=== PATIENT | male | born 1970 | race Caucasian/White ===

== ENCOUNTER 2023-10-25 14:25 | Inpatient (IN) | payer BC, SELFPAY ==
[2023-10-25] VITALS (7 sets, daily range): BP systolic 116–133; BP diastolic 70–94; BMI 30.7; BMI 30.2
[2023-10-25 10:08] LABS: % Basophils 0.4 % (0-2); % Eosinophils 0.7 % (0-6); % Immature Granulocytes 0.2 % (0-0.5); % Lymphocytes 10.4 % (20.5-51.1); % Monocytes 13.6 % (1.7-9.3); % Neutrophils 74.7 % (42.2-75.2); Absolute Eosinophils 0.1 10^3/uL (0-0.7); Absolute Monocytes 1.3 10^3/uL (0.1-0.6); Hematocrit 41.6 % (39.0-52.0); Mean Corp Hgb Conc. 36.1 g/dL (33.0-37.0); Mean Corpuscular Hgb 32.5 pg (27.0-31.0); Mean Platelet Volume 9.3 fL (7.4-10.4); Nucleated Red Blood Cells % 0 % (-); Platelet Count 214 10^3/uL (130-400); Red Blood Cell Count 4.62 10^6/uL (4.70-6.10); Red Cell Dist. Width 11.9 % (11.5-14.5); White Blood Cell Count 9.3 10^3/uL (4.8-10.8)
[2023-10-25 10:21] LABS: ALT (SGPT) 48 U/L (0-50); AST (SGOT) 30 U/L (17-59); Albumin 4.4 g/dl (3.5-5.0); Alkaline Phosphatase 39 U/L (38-126); Blood Urea Nitrogen 13 mg/dl (9-20); Calcium 9.3 mg/dl (8.4-10.2); Carbon Dioxide 29 mmol/L (22-30); Chloride 98 mmol/L (98-107); Glucose 98 mg/dl (70-99); Lipase 34 U/L (23-300); Potassium 4.4 mmol/L (3.5-5.1); Sodium 134 mmol/L (135-145); Total Bilirubin 1.1 mg/dl (0.2-1.3); Total Protein 7.3 g/dl (6.3-8.2); eGFR > 60.00
--- NOTE | 2023-10-25 10:23 | ED.GENMED ---
History of Present Illness
<TY Franco - Last Filed: 10/26/23 07:32>
General
Chief Complaint: Abdominal Pain
Source: patient
Exam Limitations: none
Time Seen by Provider: 10/25/23 09:40
Nursing documentation reviewed up to this point in time: agreed with
Travel History
Have you had any contact with someone who has COVID-19?: No
Do you have any symptoms of coronavirus? Fever > 100 degrees, chills, cough, shortness of breath, sore throat, loss of taste or smell, muscle aches, or headache?: No
History of Present Illness
History of Present Illness:
Patient is a 53-year-old male with past medical history of diverticulitis with perforation, hypertension and Achilles tendon rupture who presents to the ER for evaluation. He started with left lower quadrant abdominal pain Tuesday night, 2 nights
ago. He reports it felt like his diverticulitis. He had Augmentin at home and started that medication. He has taken a total of 4 doses. He reports pain continues and has worsened. Last night he had chills and sweats.
He is nauseous with this pain but has not vomited. He reports this morning he moved his bowels about 7 times but is having very small amt of small 'rabbit type stool.'
Review of Systems
<TY Franco - Last Filed: 10/26/23 07:32>
Review of Systems
Allergies reviewed?: Yes
All Other Systems: ROS reviewed and negative except as documented in HPI and ROS
Constitutional: Reports chills (+ chills/sweats )
Respiratory: Reports no symptoms
Cardiac: Reports no symptoms
ABD/GI: Reports abdominal pain, nausea and constipated; Denies vomiting, diarrhea or bloody stools
: Reports no symptoms
Musculoskeletal: Reports no symptoms
Skin: Reports no symptoms
Hematologic/Lymphatic: Reports no symptoms
Psychiatric: Reports no symptoms
Phy Exam
<TY Franco - Last Filed: 10/26/23 07:32>
General Physical Exam
General Presentation: no apparent distress
General age: appears stated age
General Skin: warm and dry
General Habitus: normal
General Mental: alert
Gastrointestinal Exam
Gastrointestinal Exam: soft and other (tender lower abdomen )
Neurological Exam
Neurological Exam: alert and oriented x3
Musculoskeletal Exam
Musculoskeletal Exam: full ROM
Skin Exam
Skin Exam: normal color and warm/dry
Psychiatric Exam
Psychiatric Exam: normal mood/affect
Course
<TY Franco - Last Filed: 10/26/23 07:32>
Orders/Labs/Results
Orders:
Orders
10/25/23 09:55
Complete Blood Count/With Diff Urgent
Comprehensive Metabolic Panel Urgent
Lipase Urgent
10/25/23 10:28
Ketorolac [Toradol] 15 mg IV NOW STA
Ondansetron Injectable [Zofran] 4 mg IV NOW STA
10/25/23 10:29
0.9% Sodium Chloride 1000 ml [Nss] 1,000 ml IV BOLUS
10/25/23 10:30
CT Abd/Pel (IV only)-DH only Urgent
Comment:
Reason For Exam: lower abd pain
10/25/23 11:43
Piperacillin/Tazo 3.375 Gram [Zosyn] 3.375 gram in 50 ml IV NOW
10/25/23 11:54
HYDROmorphone [Dilaudid] 0.5 mg IV NOW STA
10/25/23 12:12
Lactic Acid Urgent
Blood Culture Q30M
TIARA Source: Blood/Venous
Specimen Description:
Blood Culture Q30M
TIARA Source: Blood/Venous
Specimen Description:
10/25/23 13:40
HYDROmorphone [Dilaudid] 0.5 mg IV NOW STA
10/25/23 13:48
Admit/Transfer Patient As Directed
Co-Sign Provider:
Level of Care: Inpatient admission
Assign to:: Medical/Surgical
Physician / Group: saul duvall
Diagnosis: diverticulitis
Reason for Hospitalization: diverticulitis
Expected length of stay greater than two midnights?: Yes
ELOS- Estimated Length of Stay in days: 3
I certify the patient meets the requirements for IP care: Yes
EKG [Electrocardiogram (*1)] Stat
Reason for Study: QTc Monitoring
10/25/23 13:49
Code Status As Directed
Resuscitation Status: Full Code
10/25/23 17:12
Acetaminophen [Tylenol] 650 mg PO Q4HPRN PRN
HYDROmorphone [Dilaudid] 0.5 mg IV Q3HPRN PRN
Ondansetron Injectable [Zofran] 4 mg IV Q6HPRN PRN
10/25/23 17:12
ColoRectal Surgery Consult Routine
Consulting Provider: Allen Glez
Was physician already notified: Yes
Activity As Directed
Activity Level: As Tolerated
Pneumatic Compression Sleeves As Directed
Type: Knee high
Vital Signs As Directed
Frequency: Per unit guidelines
DX Deep Vein Thrombosis Video Routine
10/25/23 17:21
HYDROmorphone [Dilaudid] 0.75 mg IV Q4HPRN PRN
10/25/23 18:00
Piperacillin/Tazo 3.375 Gram [Zosyn] 3.375 gram in 50 ml IV Q6H
10/26/23 06:47
Basic Metabolic Panel IN AM
Complete Blood Count/No Diff IN AM
10/26/23 08:00
Olmesartan Medoxomil [Benicar] 40 mg PO DAILY
10/27/23 06:00
Basic Metabolic Panel IN AM
Complete Blood Count/No Diff IN AM
10/28/23 06:00
Basic Metabolic Panel IN AM
Complete Blood Count/No Diff IN AM
10/29/23 06:00
Basic Metabolic Panel IN AM
Complete Blood Count/No Diff IN AM
10/30/23 06:00
Complete Blood Count/No Diff IN AM
Abnormal Lab Results
10/25/23
09:55
RBC 4.62 L 10^6/uL
(4.70-6.10)
MCH 32.5 H pg
(27.0-31.0)
Absolute Neuts (auto) 7.0 H 10^3/uL
(1.4-6.5)
Absolute Lymphs (auto) 1.0 L 10^3/uL
(1.2-3.4)
Absolute Monos (auto) 1.3 H 10^3/uL
(0.1-0.6)
Lymphocytes % 10.4 L %
(20.5-51.1)
Monocytes % 13.6 H %
(1.7-9.3)
Sodium 134 L mmol/L
(135-145)
10/25/23 09:55
10/25/23 09:55
Vital Signs
Initial and Last Documented VS:
Initial Vital Signs
Temp Pulse Resp BP Pulse Ox
99 F 87 16 125/87 98
10/25/23 09:28 10/25/23 09:28 10/25/23 09:28 10/25/23 09:28 10/25/23 09:28
Last Documented Vital Signs
Temp Pulse Resp BP Pulse Ox
98.1 F 69 20 116/70 99
10/25/23 23:47 10/25/23 23:47 10/25/23 23:47 10/25/23 23:47 10/25/23 23:47
Helpdesk Analyst consulted with Physician
Helpdesk Analyst consulted with physician?: Yes
Name of Physician Consulted: Arianna
<Orion Keller DO - Last Filed: 10/25/23 15:21>
Orders/Labs/Results
Orders:
Orders
10/25/23 09:55
Complete Blood Count/With Diff Urgent
Comprehensive Metabolic Panel Urgent
Lipase Urgent
10/25/23 10:28
Ketorolac [Toradol] 15 mg IV NOW STA
Ondansetron Injectable [Zofran] 4 mg IV NOW STA
10/25/23 10:29
0.9% Sodium Chloride 1000 ml [Nss] 1,000 ml IV BOLUS
10/25/23 10:30
CT Abd/Pel (IV only)-DH only Urgent
Comment:
Reason For Exam: lower abd pain
10/25/23 11:43
Piperacillin/Tazo 3.375 Gram [Zosyn] 3.375 gram in 50 ml IV NOW
10/25/23 11:54
HYDROmorphone [Dilaudid] 0.5 mg IV NOW STA
10/25/23 12:12
Lactic Acid Urgent
Blood Culture Q30M
TIARA Source: Blood/Venous
Specimen Description:
Blood Culture Q30M
TIARA Source: Blood/Venous
Specimen Description:
10/25/23 13:40
HYDROmorphone [Dilaudid] 0.5 mg IV NOW STA
10/25/23 13:48
Admit/Transfer Patient As Directed
Co-Sign Provider:
Level of Care: Inpatient admission
Assign to:: Medical/Surgical
Physician / Group: saul duvall
Diagnosis: diverticulitis
Reason for Hospitalization: diverticulitis
Expected length of stay greater than two midnights?: Yes
ELOS- Estimated Length of Stay in days: 3
I certify the patient meets the requirements for IP care: Yes
EKG [Electrocardiogram (*1)] Stat
Reason for Study: QTc Monitoring
10/25/23 13:49
Code Status As Directed
Resuscitation Status: Full Code
10/25/23 17:12
Acetaminophen [Tylenol] 650 mg PO Q4HPRN PRN
HYDROmorphone [Dilaudid] 0.5 mg IV Q3HPRN PRN
Ondansetron Injectable [Zofran] 4 mg IV Q6HPRN PRN
10/25/23 17:12
ColoRectal Surgery Consult Routine
Consulting Provider: Allen Glez
Was physician already notified: Yes
Activity As Directed
Activity Level: As Tolerated
Pneumatic Compression Sleeves As Directed
Type: Knee high
Vital Signs As Directed
Frequency: Per unit guidelines
DX Deep Vein Thrombosis Video Routine
10/25/23 17:21
HYDROmorphone [Dilaudid] 0.75 mg IV Q4HPRN PRN
10/25/23 18:00
Piperacillin/Tazo 3.375 Gram [Zosyn] 3.375 gram in 50 ml IV Q6H
10/26/23 06:47
Basic Metabolic Panel IN AM
Complete Blood Count/No Diff IN AM
10/26/23 08:00
Olmesartan Medoxomil [Benicar] 40 mg PO DAILY
10/27/23 06:00
Basic Metabolic Panel IN AM
Complete Blood Count/No Diff IN AM
10/28/23 06:00
Basic Metabolic Panel IN AM
Complete Blood Count/No Diff IN AM
10/29/23 06:00
Basic Metabolic Panel IN AM
Complete Blood Count/No Diff IN AM
10/30/23 06:00
Complete Blood Count/No Diff IN AM
Abnormal Lab Results
10/25/23
09:55
RBC 4.62 L 10^6/uL
(4.70-6.10)
MCH 32.5 H pg
(27.0-31.0)
Absolute Neuts (auto) 7.0 H 10^3/uL
(1.4-6.5)
Absolute Lymphs (auto) 1.0 L 10^3/uL
(1.2-3.4)
Absolute Monos (auto) 1.3 H 10^3/uL
(0.1-0.6)
Lymphocytes % 10.4 L %
(20.5-51.1)
Monocytes % 13.6 H %
(1.7-9.3)
Sodium 134 L mmol/L
(135-145)
10/25/23 09:55
10/25/23 09:55
Vital Signs
Initial and Last Documented VS:
Initial Vital Signs
Temp Pulse Resp BP Pulse Ox
99 F 87 16 125/87 98
10/25/23 09:28 10/25/23 09:28 10/25/23 09:28 10/25/23 09:28 10/25/23 09:28
Last Documented Vital Signs
Temp Pulse Resp BP Pulse Ox
98.1 F 69 20 116/70 99
10/25/23 23:47 10/25/23 23:47 10/25/23 23:47 10/25/23 23:47 10/25/23 23:47
<TY Franco - Last Filed: 10/26/23 07:32>
MDM/Problems Addressed
Differential Diagnosis Includes:
not limited to: diverticulitis
MDM/Problems Addressed:
53 yr old male w/ hx of diverticulitis w/ perforation presented w/ lower abd pain , chills. Pt w/ lower abd tenderness on exam w/ a nml wbc non toxic appearing however CT does show acute sigmoid divertic w/ small abscess formation measuring up
to 3.0 cm. Patient was given fluids, pain medication. Case reviewed with colorectal surgery on-call Dr. Glez, DANY Perez ordered. Patient was eval by Dr. Glez and admitted to the hospitalist service. Patient stable with a normal lactic acid.
Chronic conditions affecting care:
History of diverticulitis with perforation
<TY Franco - Last Filed: 10/26/23 07:32>
*Radiology
Radiology exam reviewed: radiology read reviewed
*Pulse Oximetry
Patient hypoxic: no
*Critical Care Note
Total Time (30-74mins, 75-104mins- exclusive of procedures): Not Applicable
ED Attending Note
<TY Franco - Last Filed: 10/26/23 07:32>
-
Portions of this chart may have been created with voice recognition software.� Occasional wrong word or��sound alike� substitutions may have occurred due to the inherent limitations of voice recognition software.
<Orion Keller DO - Last Filed: 10/25/23 15:21>
ED Attending Note
Patient seen and examined by attending physician: Yes
I performed the substantive portion of visit, reviewed & personally made and approve the management plan that is documented in note by myself or KIKI.: Yes
ED Attending Note:
Patient is a 53-year-old male with a history of diverticulitis with perforation approximately 9 months ago and a repeat of diverticulitis approximately 6 months ago. Patient started with pain 3 days ago and was started himself on Augmentin.
Patient has not required surgery. Patient was having chills, sweats and rigors for the last 2 days. Patient denies any nausea, vomiting, hematochezia. Patient denies any symptoms or back pain. On physical exam patient's in mild to moderate
distress. Heart is regular lungs are clear. Patient's mucous membranes are moist. Patient is exquisitely point tender in the left lower quadrant with guarding and rebound. Extremities without edema, cyanosis or tenderness. CT shows
diverticulitis with abscess. CBC does not show an elevated white count. Patient will be admitted and seen by colorectal. Patient may require surgery.
Discharge Plan
Departure
Patient Disposition: Admit
Date of Disposition: 10/25/23
Time of Disposition: 13:25
Admit to: Med/Surg
Admit to doctor: hospitalist
Presentation/result/management discussed w/ accepting MD/DO: Hospitalist
Patient with high blood pressure during this ER visit?: Yes
Condition: Fair
Covid-19: Not Applicable
Discharge Problem:
diverticulitis with abscess
Interventions
Interventions:
*Risk Screen - Suicide Last Done: 10/25/23 09:28
*General Assessment Last Done: 10/25/23 09:28
*Neglect/Abuse Screening Last Done: 10/25/23 09:28
ED- Fall Risk Assessment Last Done: 10/25/23 17:23
*ED COVID-19 Vaccine History Last Done: 10/25/23 17:23
*Nursing Disposition Last Done: 10/25/23 17:23
YX-Trfrse-Avycdrahkl Assessment Last Done: 10/25/23 09:55
Discharge Date and Time
Discharge Date/Time: 10/25/23 17:24
[2023-10-25] MEDS: TORADOL 15 MG IV (10:39)
[2023-10-25] MEDS: NSS 1000 IV (10:39)
[2023-10-25] MEDS: ZOFRAN 4 MG IV (10:40)
[2023-10-25] MEDS: DILAUDID 0.5 MG IV ×3 (12:13→21:15)
[2023-10-25] MEDS: ZOSYN 50 IV ×3 (12:14→23:33)
[2023-10-25 13:01] LABS: Lactic Acid 0.7 mmol/L (0.7-2.0)
--- NOTE | 2023-10-25 13:28 | HPS.HSE ---
Addendum entered and electronically signed by Gabriella Dykes MD 10/25/23 15:29:
I saw and examined the patient.
The PRODUCT STEWARD's note was reviewed and I agree with the note.
Comment:
Mr. Allen Fowler is a 53 yo man with hx diveritculitis x 2 over past 10 months, HTN presents to the ER with abdominal pain x 4 days increasing in intensity. He took Augmentin prescribed to him as outpatient without effect. Triage vitals
stable. Labs without leukocytosis. CT A/P with finding of acute sigmoid diverticulitis with associated small abscess formation.
On exam patient is conversant, in no distress (s/p dilaudid x 2). + TTP lower abdomen, no rebound or gaurding. No swelling LE.
CT A/P
IMPRESSION:
1. � Acute sigmoid diverticulitis with associated small abscess formation. Abscess measuring up to 3.0 cm in diameter. As above, this is in a position which is likely not amenable to percutaneous drainage.
2. � Hepatomegaly and hepatic fatty infiltration.
3. � Unchanged low-attenuation 1.3 cm nodule superior prostate gland, indeterminate etiology.
-patient is admitted to medicine with CRS consulting.
-CLD
-IVF
-pain control
-IV Zosyn
Original Note:
Family Physician
-
Family Physician: Orlin Mondragon
Chief Complaint
-
abdominal pain assoicated with n
History of Present Illness
�53-year-old male with past medical history of diverticulitis with perforation, hypertension and Achilles tendon rupture who presents to us with mid abdomen pain since Tuesday night. stated constant nausea but no vomit. had small pellets of BM
around with diarrhea 7 times today. stated chills, not sure about the fever. stated poor appetite. he started taking Augmentin yesterday. took total of 4 doses with no relief in his symptoms. denied CHRISTIANSON, dizzy or syncopal episode. denied chest pain,
sob. denied dysuria or hematuria.
CT with Acute sigmoid diverticulitis with associated small abscess formation. Abscess measuring up to 3.0 cm in diameter. As above, this is in a position which is likely not amenable to percutaneous drainage.
patient received Zosyn, Dilaudid in ER. admitting for further management.
Medical History
Past Medical History
Past Medical History: Reports Other
Additional Past Medical History:
diverticulitis
HTN
achillies tendon
Past Surgical History: Reports Other
Additional Past Surgical History:
b/l hip surgery
shoulder, neck surgery
wrist surgery
appendectomy
tonsillectomy
vasectomy
Social History
Tobacco: Former Smoker
Alcohol: Daily (2 glass of wine)
Drug: None
Personal:
Living: With Family
Employment: Employed
Family History
Family History: Not pertinent
Allergies / Home Medications
Allergies reflects when Allergies were last updated in [employer].
Home Medications with original date entered in [employer]
Allergy/Medication List:
Allergies
Allergy/AdvReac Type Severity Reaction Status Date / Time
clarithromycin [From Biaxin] Allergy Rash Verified 10/25/23 09:28
Sulfa (Sulfonamide Allergy Rash Verified 10/25/23 09:28
Antibiotics)
Home Medications
amoxicillin 875 mg-potassium clavulanate 125 mg tablet 1 tab PO Q8HPRN PRN diverticulitis flares 10/25/23
cholecalciferol (vitamin D3) 125 mcg (5,000 unit) tablet 125 mcg PO DAILY PRN supplement 10/25/23
clindamycin 1.2 % (1 % base)-benzoyl peroxide 5 % topical gel 1 applic topical DAILYPRN PRN apply to face for acne flares 10/25/23
metronidazole 0.75 % topical cream 1 applic topical HSPRN PRN apply to face for acne flares 10/25/23
olmesartan 40 mg tablet 40 mg PO DAILY 10/25/23
sucralfate 1 gram tablet 1 g PO QIDPRN PRN stomach discomfort 10/25/23
therapeutic multivitamin 1 tab PO DAILY PRN supplement 10/25/23
vitamin E 1 tab PO DAILYPRN PRN supplement 10/25/23
Review of Systems
-
Constitutional: Reports No Symptoms
EENT: Reports No Symptoms
Respiratory: Reports No Symptoms
Cardiac: Reports No Symptoms
Abdomen/GI: Reports Abdominal Pain and Nausea
: Reports No Symptoms
Musculoskeletal: Reports No Symptoms
Skin: Reports No Symptoms
Neurological: Reports No Symptoms
Endocrine: Reports No Symptoms
Hematologic/Lymphatic: Reports No Symptoms
Psych: Reports No Symptoms
Physical Exam
Vital Signs
Vital Signs
Temp Pulse Resp BP Pulse Ox
98.4 F 79 16 133/94 91
10/25/23 12:42 10/25/23 12:25 10/25/23 12:25 10/25/23 12:25 10/25/23 12:30
Physical Exam
General: Well Developed, Well Nourished and No Apparent Distress
HEENT: NormoCephalic, Moist mucous membranes and Atraumatic
Respiratory: Clear
Cardiac: S1/S2 and Regular Rhythm; No Murmur or Rub
GI: Soft, Non Tender, Non Distended and Normal Bowel Sounds; No Organomegaly
Rectal: Deferred by Provider
Musculoskeletal: No Clubbing, No Cyanosis and No Edema
Skin: No Rash
Neuro: AO x 3 and Nonfocal/grossly intact
Psych: Calm
Laboratory Results
-
10/25/23 09:55
10/25/23 09:55
Laboratory Results
Lactic Acid 0.7 mmol/L (0.7-2.0) 10/25/23 12:12
Total Bilirubin 1.1 mg/dl (0.2-1.3) 10/25/23 09:55
AST 30 U/L (17-59) 10/25/23 09:55
ALT 48 U/L (0-50) 10/25/23 09:55
Alkaline Phosphatase 39 U/L (38-126) 10/25/23 09:55
Lipase 34 U/L (23-300) 10/25/23 09:55
Data Reviewed
-
CT Scan: Report Reviewed by me
Lab Data: Labs Reviewed by me
Impression/Plan
-
# Diverticulitis with 3 centimeter abscess
-Not amendable for percutaneous drainage
-Colorectal consulted
-IV Zosyn continued
-Afebrile, normal WBC
-CT abdomen pelvis with impression of Acute sigmoid diverticulitis with associated small abscess formation. Abscess measuring up to 3.0 cm in diameter. As above, this is in a position which is likely not amenable to percutaneous drainage.
2. � Hepatomegaly and hepatic fatty infiltration.
3. � Unchanged low-attenuation 1.3 cm nodule superior prostate gland, indeterminate etiology.
-Blood culture sent from ER
-Tylenol as needed for fever
-Dilaudid prn for pain
-zofran prn for n/v
-NPO with sips of clears
-Toradol for moderate pain
#essential htn
-BP stable in ER
-olmesartan continued
#DVT prophylaxis
-scd
#CODE status
-full code
--- NOTE | 2023-10-25 13:58 | CON.CRS ---
Consultation
-
Performing Provider: Allen Glez MD
Reason for Consultation: Diverticulitis
Medical History
-
History of Present Illness:
Patient is a 53-year-old male with a PMH of HTN, HLD, acne and diverticulitis (first episode in January 2023, occurred in [place], was told there was a perforation and was treated nonoperatively in the hospital for 7 days; second episode occurred
April 2023, CT in [place] ED showing uncomplicated diverticulitis) who presents with 2 days of worsening abdominal pain. He recognized that this felt like another episode of diverticulitis and started taking an old prescription of Augmentin.
He has taken 2 days of the Augmentin, but the abdominal pain continued to get worse. Denies any new onset fever or N/V. His last colonoscopy was 6 months ago and reports that it is normal, recommended to repeat in 10 years. This was done in
[facility].
In the ED, a CT scan was done showing a recurrent episode of diverticulitis associated with 3 cm abscess. His WBC was 9.3.
Past Medical History
Past Medical History: Other (As above)
Past Surgical History: Other (Bilateral hip surgery, Achilles rupture, shoulder surgery, neck surgery, wrist surgery, back surgery, appendectomy 40 years ago, tonsils, vasectomy)
Social History
Employment: Employed
Family History
Family History: Reviewed & Noncontributory
Allergies / Home Medications
Allergy/AdvReac Type Severity Reaction Status Date / Time
clarithromycin [From Biaxin] Allergy Rash Verified 10/25/23 09:28
Sulfa (Sulfonamide Allergy Rash Verified 10/25/23 09:28
Antibiotics)
Medication Instructions Recorded Confirmed Type
amoxicillin 875 mg-potassium 1 tab PO Q8HPRN PRN diverticulitis 10/25/23 10/25/23 History
clavulanate 125 mg tablet flares
cholecalciferol (vitamin D3) 125 125 mcg PO DAILY PRN supplement 10/25/23 10/25/23 History
mcg (5,000 unit) tablet
clindamycin 1.2 % (1 % 1 applic topical DAILYPRN PRN 10/25/23 10/25/23 History
base)-benzoyl peroxide 5 % topical apply to face for acne flares
gel
metronidazole 0.75 % topical cream 1 applic topical HSPRN PRN apply 10/25/23 10/25/23 History
to face for acne flares
olmesartan 40 mg tablet 40 mg PO DAILY 10/25/23 10/25/23 History
sucralfate 1 gram tablet 1 g PO QIDPRN PRN stomach 10/25/23 10/25/23 History
discomfort
therapeutic multivitamin 1 tab PO DAILY PRN supplement 10/25/23 10/25/23 History
vitamin E 1 tab PO DAILYPRN PRN supplement 10/25/23 10/25/23 History
Review of Systems
-
All other systems: Negative unless noted
A 10 point review of systems was completed, and was negative except as per HPI.
Physical Exam
Vital Signs
Temp 98.4 F 10/25/23 12:42
Pulse 79 10/25/23 12:25
Resp Rate 16 10/25/23 12:25
Blood pressure 133/94 10/25/23 12:25
SaO2 91 10/25/23 12:30
10/24/23 10/25/23 10/26/23
06:59 06:59 06:59
Actual Weight 97.1 kg
Body Mass Index (BMI) 30.7
Lab Results / Allergies
10/25/23 09:55
10/25/23 09:55
WBC 9.3 10^3/uL (4.8-10.8) 10/25/23 09:55
Hgb 15.0 g/dL (13.0-18.0) 10/25/23 09:55
Hct 41.6 % (39.0-52.0) 10/25/23 09:55
Plt Count 214 10^3/uL (130-400) 10/25/23 09:55
Abs Immat Gran (auto) 0.0 10^3/uL (0-0.05) 10/25/23 09:55
Neutrophils % 74.7 % (42.2-75.2) 10/25/23 09:55
Allergy/AdvReac Type Severity Reaction Status Date / Time
clarithromycin [From Biaxin] Allergy Rash Verified 10/25/23 09:28
Sulfa (Sulfonamide Allergy Rash Verified 10/25/23 09:28
Antibiotics)
Physical Exam
General: No Apparent Distress and Comfortable
HEENT: Normocephalic and Atraumatic
Respiratory: Non Labored Respirations
GI: Soft, Non Distended and Tender (Mildly tender in the suprapubic to LLQ, no rebound or guarding)
Skin: Warm and Dry
Neuro: AO x 3
Data Reviewed
-
CT Scan: Image Personally Visualized and interpreted, Discussed with Patient and Discussed with Family
Labs: Labs Reviewed by me, Discussed with Patient and Discussed with Family
Assessment / Plan
-
53-year-old male with a PMH of HTN, HLD, acne and diverticulitis (first episode in January 2023, occurred in [place], was told there was a perforation and was treated nonoperatively in the hospital for 7 days; second episode occurred April 2023, CT
in [place] ED showing uncomplicated diverticulitis) who presents with 2 days of worsening abdominal pain, CT showing diverticulitis with 3.2cm abscess, not accessible by IR. His last colonoscopy was 6 months ago and reports that it is normal,
recommended to repeat in 10 years. This was done in [facility].
-No acute surgical intervention currently indicated
� Okay for clears from CRS standpoint
� Attempt nonoperative management with IV antibiotics, agree with IV Zosyn
� Pain control, recommend Toradol and Tylenol as needed
� OOB/IS
� Explained the pathophysiology of complicated versus uncomplicated diverticulitis and explained the treatment options to the patient, both nonoperative and operative; risks of urgent surgery include, but are not limited to, increased risk for open
surgery and ostomy creation; currently no contraindications to nonoperative management; explained risks with nonoperative management including, but not limited to, failure requiring surgery; plan would be to continue nonoperative management and
follow-up as an outpatient to discuss the risks and benefits of elective colectomy; patient understood well and all questions answered
[2023-10-25] MEDS: DILAUDID 1 MG IV (15:36)
[2023-10-25] MEDS: LR 1000 IV (17:48)
[2023-10-25] MEDS: DILAUDID 0.75 MG IV ×2 (18:08→23:57)
[2023-10-25] MEDS: TYLENOL 650 MG PO (19:51)
[2023-10-26] MEDS: TYLENOL 650 MG PO (02:39)
[2023-10-26] MEDS: DILAUDID 0.75 MG IV ×6 (04:04→21:51)
[2023-10-26] MEDS: LR 1000 IV (04:27)
--- NOTE | 2023-10-26 04:29 | DOWNTIME ---
There was a [employer] Client Buckle Inspector Downtime on 10/26/2023 from 0111 to 10/26/2023 at 0405. Downtime documentation of patient's care, including medication administrations, has been reconciled in the electronic record per guidelines. Refer to the
patient's paper chart under the miscellaneous tab to see printed paper medication records and downtime forms.
[2023-10-26] MEDS: ZOSYN 50 IV ×4 (05:59→23:01)
[2023-10-26 06:59] LABS: Hematocrit 35.8 % (39.0-52.0); Hemoglobin 12.9 g/dL (13.0-18.0); Mean Corpuscular Hgb 32.7 pg (27.0-31.0); Mean Corpuscular Volume 90.6 fL (80.0-94.0); Mean Platelet Volume 9.1 fL (7.4-10.4); Platelet Count 183 10^3/uL (130-400); Red Blood Cell Count 3.95 10^6/uL (4.70-6.10); Red Cell Dist. Width 11.9 % (11.5-14.5); White Blood Cell Count 6.9 10^3/uL (4.8-10.8)
[2023-10-26 07:24] LABS: Blood Urea Nitrogen 12 mg/dl (9-20); Calcium 8.6 mg/dl (8.4-10.2); Carbon Dioxide 31 mmol/L (22-30); Chloride 95 mmol/L (98-107); Estimated Creatinine Clearance 99 ml/min; Glucose 89 mg/dl (70-99); Potassium 4.3 mmol/L (3.5-5.1); Sodium 132 mmol/L (135-145); eGFR > 60.00
[2023-10-26 07:30] VITALS: BP 128/70
[2023-10-26] MEDS: FLUSH (NSS) 2 FLUSH IV (08:36)
[2023-10-26] MEDS: ZOFRAN 4 MG IV ×2 (08:36→21:57)
[2023-10-26] MEDS: BENICAR 40 MG PO (08:37)
--- NOTE | 2023-10-26 10:09 | W.PN.CRS1 ---
Today's Communication / Plan
-
N.p.o.
Simethicone
Assessment/Plan
-
Assessment: 53-year-old male with a second attack of diverticulitis with a associated 3.2 cm abscess not accessible by IR
Plan:
1. Continue to monitor vital signs. Normal. WBC is normal.
2. Remain n.p.o. given the amount of abdominal pain overnight.
3. Continue IV antibiotics.
4. Pain control: Dilaudid IV as needed.
5. Will add simethicone given gas pains.
6. No need for surgery at this time. If he were to worsen he will require a colectomy with colostomy creation.
Subjective Data
Subjective Data
Date of Service: October 26, 2023
Patient states he has bad gas pains. He has shivers and sweats overnight. He had some difficulty swallowing as well which is now resolved. He states his pain medication did not really work. He describes the pain in his abdomen like spasms that
are cycling. He has flatus and bowel movements.
Objective Data
-
Vital Signs
Temp Pulse Resp BP Pulse Ox
98.9 F 72 16 128/70 95
10/26/23 07:30 10/26/23 07:30 10/26/23 07:30 10/26/23 07:30 10/26/23 07:30
Intake & Output
10/25/23 10/26/23 10/27/23
06:59 06:59 06:59
Intake Total 2800 / 2800
Balance 2800 / 2800
Intake:
Oral fluids 1500 / 1500
IV fluids (Total) 1200 / 1200
IV piggybacks 100 / 100
Other:
Number of approximated MODERATE 2
amounts of urine
Lab Results
10/26/23 06:47
10/26/23 06:47
Physical Exam
-
General: No Acute Distress and AOx3
Abdomen: Soft, Non Distended and Tender (Suprapubic, minimally improved)
Skin: Warm and Dry
[2023-10-26] MEDS: MYLICON 80 MG PO ×3 (10:43→22:55)
--- NOTE | 2023-10-26 11:07 | W.PN.HOSP.TC ---
Today's Communication/Plan
-
see plan
Assessment / Plan
Assessment / Plan
Mr. Allen Fowler is a 53 yo man with hx diveritculitis x 2 over past 10 months, HTN presents to the ER with abdominal pain x 4 days increasing in intensity.� He took Augmentin prescribed to him as outpatient without effect.� Triage vitals
stable.� Labs without leukocytosis.� CT A/P with finding of acute sigmoid diverticulitis with associated small abscess formation.
CT A/P
IMPRESSION:
1. � Acute sigmoid diverticulitis with associated small abscess formation. Abscess measuring up to 3.0 cm in diameter. As above, this is in a position which is likely not amenable to percutaneous drainage.
2. � Hepatomegaly and hepatic fatty infiltration.
3. � Unchanged low-attenuation 1.3 cm nodule superior prostate gland, indeterminate etiology.�
Acute Sigmoid Diverticulitis with associated abscess formation 3.0 cm
-patient is admitted to medicine with CRS consulting.
-NPO
-IV Zosyn
-pain control
-appreciate CRS
-simethicone started as patient reports gas pain
Essential Hypertension
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
DVT PPx Lovenox subQ
FULL CODE
Anticipated Discharge: > 48 hours
Subjective/Interval History
-
Date of Service: October 26, 2023
continuing to have pain, states worse with clears
Objective Data
-
Labs:
Laboratory Results
10/26/23
06:47
WBC 6.9
Hgb 12.9 L
Hct 35.8 L
Plt Count 183
Sodium 132 L
Potassium 4.3
Chloride 95 L
Carbon Dioxide 31 H
BUN 12
Creatinine 1.0
Glucose 89
Calcium 8.6
Vital Signs:
Vital Signs
Temp Pulse Resp BP Pulse Ox
98.9 F 72 16 128/70 95
10/26/23 07:30 10/26/23 07:30 10/26/23 07:30 10/26/23 07:30 10/26/23 07:30
I&O
10/25/23 10/26/23 10/27/23
06:59 06:59 06:59
Intake Total 2800 / 2800
Balance 2800 / 2800
Review of Systems
-
History Source: Patient
All other systems: Reviewed and negative
Physical Exam
-
General: No Apparent Distress
HEENT: PERRLA
Respiratory: Clear to Auscultation; Negative Wheezes
Cardiac: Regular Rhythm and S1/S2
GI: Other (distended, tenderness lower quadrants, no rebound or guarding )
Musculoskeletal: No Edema
Skin: Warm and Dry; Negative Rash
Neuro: AO x 3
Psych: Calm
Data Reviewed
-
Diagnostic Radiology: Report Reviewed by me
Labs: Labs Reviewed by me
[2023-10-26] MEDS: D5LR 1000 IV ×2 (11:10→22:54)
--- NOTE | 2023-10-26 14:41 | PN.CDI ---
CDI
- -
CDI:
Physician Documentation Request
Admit Date: 10/25/23 14:25
Dear Doctor Donis,
Clinical Indicators:
Patient admitted with diverticulitis with abscess.
IVF NSS bolus + LR @ 100ml/hr
Sodium levels:
10/25/23 10/26/23
09:55 06:47
Sodium 134 L 132 L
Based on the above, could you clarify in the progress notes, the appropriate diagnosis, if significant, that supports the above abnormalities and additional evaluation, monitoring and/or treatment rendered:
Hyponatremia
Abnormal lab value, clinically insignificant
Other
Use of terms such as suspected, likely, concern for, or probable (associated with a specific diagnosis that is being evaluated, monitored, or treated as if it exists) are acceptable and can be coded in the inpatient setting, when documented at the
time of discharge.
Thank you,
ALIVIA Burns RN
CDI Specialist
available via tiger text
Please use your independent medical judgment in providing your response.
--- NOTE | 2023-10-26 15:23 | CM ---
Patient seen bedside with , initial assessment completed. Patient reports he lives with his in a multiple story home, denies DME, VN, or SNF. Patient reports he has been in outpatient PT with [facility] in [place] as of 2022. Patient confirms
[facility], pharmacy confirmed [facility]. CM will continue to continue for discharge planning needs.
Plan; home with , watch for further medical evaluation.
[2023-10-26 15:45] VITALS: BP 140/86
[2023-10-26] MEDS: LOVENOX 40 MG SC (18:01)
[2023-10-26 23:51] VITALS: BP 123/69
[2023-10-27] MEDS: DILAUDID 0.75 MG IV ×6 (00:56→21:30)
[2023-10-27] MEDS: ZOSYN 50 IV ×3 (05:37→18:14)
[2023-10-27] MEDS: MYLICON 80 MG PO ×4 (05:44→23:46)
[2023-10-27 08:06] VITALS: BP 146/84
[2023-10-27] MEDS: BENICAR 40 MG PO (08:07)
[2023-10-27 08:21] LABS: Hematocrit 36.8 % (39.0-52.0); Hemoglobin 13.1 g/dL (13.0-18.0); Mean Corp Hgb Conc. 35.6 g/dL (33.0-37.0); Mean Corpuscular Hgb 32.1 pg (27.0-31.0); Mean Corpuscular Volume 90.2 fL (80.0-94.0); Mean Platelet Volume 9.7 fL (7.4-10.4); Platelet Count 219 10^3/uL (130-400); Red Blood Cell Count 4.08 10^6/uL (4.70-6.10); Red Cell Dist. Width 11.6 % (11.5-14.5); White Blood Cell Count 7.3 10^3/uL (4.8-10.8)
[2023-10-27 08:48] LABS: Blood Urea Nitrogen 8 mg/dl (9-20); Calcium 8.7 mg/dl (8.4-10.2); Carbon Dioxide 31 mmol/L (22-30); Chloride 98 mmol/L (98-107); Estimated Creatinine Clearance 90 ml/min; Glucose 84 mg/dl (70-99); Potassium 3.9 mmol/L (3.5-5.1); Sodium 134 mmol/L (135-145); eGFR > 60.00
--- NOTE | 2023-10-27 08:55 | W.PN.CRS1 ---
Addendum entered and electronically signed by Orion Costello MD 10/27/23 15:58:
Of note, patient updated via phone as to today CT results. He is aware that IR will attempt to place a drain tomorrow.
Addendum entered and electronically signed by Orion Costello MD 10/27/23 15:36:
I saw and examined the patient.
The PA's note was reviewed and I agree with the note.
Comment:
Seen in a.m. with PA.
Continued to complain of abdominal cramping and discomfort. Had some flatus but no BMs in a few days. Asked for laxatives.
Vitals and blood work reasonable.
Abdomen with mild left lower quadrant discomfort.
Remain n.p.o. for now.
CT scan ordered. I did review it later in the day. It shows increasing size of the abdominal abscess. I communicated with Dr. Luna of interventional radiology about consideration for IR drain placement. He relayed that he would be willing to
try it probably tomorrow morning, however it may be technically challenging. Order placed for IR drain placement.
Continue antibiotics.
Original Note:
Today's Communication / Plan
-
CT A/P
Assessment/Plan
-
Assessment: 53-year-old male with a second attack of diverticulitis with a associated 3.2 cm abscess not accessible by IR
Plan:
1.� Given increasing abdominal pain, CT A/P ordered.
2.� Remain n.p.o. until CT has resulted.
3.� Continue IV antibiotics.
4.� Pain control: Dilaudid IV as needed.
5.� On simethicone given gas pains.
6.� Plan to follow once CT is performed.
Subjective Data
Subjective Data
Date of Service: October 27, 2023
Patient states he had a very bad night. He had the worst abdominal pain since admission. He describes his pain as gas like/pressure pain, occasional stabbing, and some churning with some periods of relief. He has flatus but no bowel movement since
Tuesday. He has nausea but no vomiting.
Objective Data
-
Vital Signs
Temp Pulse Resp BP Pulse Ox
99.0 F 71 20 146/84 95
10/27/23 08:06 10/27/23 08:06 10/27/23 08:06 10/27/23 08:06 10/27/23 08:06
Intake & Output
10/26/23 10/27/23 10/28/23
06:59 06:59 06:59
Intake Total 2800 / 2800 1320 / 1320
Balance 2800 / 2800 1320 / 1320
Intake:
Oral fluids 1500 / 1500 120 / 120
IV fluids (Total) 1200 / 1200 1100 / 1100
IV piggybacks 100 / 100 100 / 100
Other:
Number of approximated MODERATE 2 2
amounts of urine
Lab Results
10/27/23 07:22
10/27/23 07:22
Physical Exam
-
General: No Acute Distress and AOx3
Abdomen: Soft, Non Distended and Tender (LLQ - mild)
Skin: Warm and Dry
[2023-10-27] MEDS: OMNIPAQUE 50 ML PO (09:17)
--- NOTE | 2023-10-27 10:34 | W.PN.HOSP.TC ---
Today's Communication/Plan
-
F/U repeat CT with IV and oral contrast
Assessment / Plan
Assessment / Plan
Mr. Allen Fowler is a 53 yo man with hx diveritculitis x 2 over past 10 months, HTN presents to the ER with abdominal pain x 4 days increasing in intensity.� He took Augmentin prescribed to him as outpatient without effect.� Triage vitals
stable.� Labs without leukocytosis.� CT A/P with finding of acute sigmoid diverticulitis with associated small abscess formation.
CT A/P
IMPRESSION:
1. � Acute sigmoid diverticulitis with associated small abscess formation. Abscess measuring up to 3.0 cm in diameter. As above, this is in a position which is likely not amenable to percutaneous drainage.
2. � Hepatomegaly and hepatic fatty infiltration.
3. � Unchanged low-attenuation 1.3 cm nodule superior prostate gland, indeterminate etiology.�
Acute Sigmoid Diverticulitis with associated abscess formation 3.0 cm
-patient is admitted to medicine with CRS consulting.
-NPO
-IV Zosyn
-pain control
-appreciate CRS
-10/27 - increased pain --> repeat CT ordered
Essential Hypertension
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
DVT PPx Lovenox subQ
FULL CODE
Anticipated Discharge: > 48 hours
Subjective/Interval History
-
Date of Service: October 27, 2023
increasing pain overnight
repeat CT ordered
Objective Data
-
Labs:
Laboratory Results
10/27/23
07:22
WBC 7.3
Hgb 13.1
Hct 36.8 L
Plt Count 219
Sodium 134 L
Potassium 3.9
Chloride 98
Carbon Dioxide 31 H
BUN 8 L
Creatinine 1.1
Glucose 84
Calcium 8.7
Vital Signs:
Vital Signs
Temp Pulse Resp BP Pulse Ox
99.0 F 71 20 146/84 95
10/27/23 08:06 10/27/23 08:06 10/27/23 08:06 10/27/23 08:06 10/27/23 08:06
I&O
10/26/23 10/27/23 10/28/23
06:59 06:59 06:59
Intake Total 2800 / 2800 1320 / 1320
Balance 2800 / 2800 1320 / 1320
Review of Systems
-
History Source: Patient
All other systems: Reviewed and negative
Physical Exam
-
General: No Apparent Distress
HEENT: PERRLA
Respiratory: Clear to Auscultation; Negative Wheezes
Cardiac: Regular Rhythm and S1/S2
GI: Other (distended, tenderness lower quadrants, no rebound or guarding )
Musculoskeletal: No Edema
Skin: Warm and Dry; Negative Rash
Neuro: AO x 3
Psych: Calm
Data Reviewed
-
Diagnostic Radiology: Report Reviewed by me
Labs: Labs Reviewed by me
[2023-10-27] MEDS: D5LR 1000 IV ×2 (13:26→23:55)
[2023-10-27] MEDS: ZOFRAN 4 MG IV (13:40)
--- NOTE | 2023-10-27 14:26 | PTCARENOTE ---
Patient with complaints of constipation. Patient states that his last BM was on Tuesday. Patient went for a CT of abdomen today and awaiting results. He is being medicated for pain as well as gas. Patient has hyperactive bowel sounds.
--- NOTE | 2023-10-27 15:14 | CM ---
Patient seen bedside with , reports waiting on test results. CM will continue to follow for discharge planning needs.
Plan; home with , no needs anticipated, watch for possible VN needs.
[2023-10-27 15:28] VITALS: BP 137/83
[2023-10-27] MEDS: TYLENOL 650 MG PO (16:55)
[2023-10-27] MEDS: D5LR IV (18:12)
[2023-10-27] MEDS: LOVENOX 40 MG SC (18:14)
[2023-10-27] MEDS: DILAUDID 0.5 MG IV (18:32)
--- NOTE | 2023-10-27 19:51 | PTCARENOTE ---
Patient receiving dilaudid 0.75 mg every 3 hours with some pain relief. Patient states that dose of pain medication given at 5pm was not effective and rating pain a 9/[address] Dykes notified and ordered a one time additional dose
of 0.5 mg of dilaudid. Zosyn also increased to 4.5 mg peter 6 hours from 3.375.
[2023-10-27] MEDS: ZOSYN 100 IV (23:46)
[2023-10-28] VITALS (9 sets, daily range): BP systolic 66–164; BP diastolic 76–96; BMI 30.2
[2023-10-28] MEDS: DILAUDID 0.75 MG IV ×3 (00:34→08:00)
[2023-10-28] MEDS: ZOSYN 100 IV ×4 (05:55→23:24)
[2023-10-28] MEDS: BENICAR 40 MG PO (08:13)
[2023-10-28 08:17] LABS: Hematocrit 38.6 % (39.0-52.0); Hemoglobin 14.1 g/dL (13.0-18.0); Mean Corp Hgb Conc. 36.5 g/dL (33.0-37.0); Mean Corpuscular Hgb 32.3 pg (27.0-31.0); Mean Corpuscular Volume 88.3 fL (80.0-94.0); Mean Platelet Volume 9.7 fL (7.4-10.4); Platelet Count 247 10^3/uL (130-400); Red Blood Cell Count 4.37 10^6/uL (4.70-6.10); Red Cell Dist. Width 11.6 % (11.5-14.5); White Blood Cell Count 7.4 10^3/uL (4.8-10.8)
[2023-10-28] MEDS: TYLENOL 650 MG PO (08:17)
[2023-10-28 08:25] LABS: INR 1.22; PT 15.2 Sec (11.4-14.6)
[2023-10-28 09:07] LABS: Blood Urea Nitrogen 6 mg/dl (9-20); Carbon Dioxide 25 mmol/L (22-30); Chloride 99 mmol/L (98-107); Estimated Creatinine Clearance 99 ml/min; Glucose 87 mg/dl (70-99); Potassium 3.9 mmol/L (3.5-5.1); Sodium 134 mmol/L (135-145); eGFR > 60.00
--- NOTE | 2023-10-28 10:07 | W.PN.HOSP.TC ---
Addendum entered and electronically signed by Gabriella Dykes MD 10/28/23 14:35:
Hyponatremia
Na stable, continue IVF
Original Note:
Today's Communication/Plan
-
see plan
Assessment / Plan
Assessment / Plan
Mr. Allen Fowler is a 53 yo man with hx diveritculitis x 2 over past 10 months, HTN presents to the ER with abdominal pain x 4 days increasing in intensity.� He took Augmentin prescribed to him as outpatient without effect.� Triage vitals
stable.� Labs without leukocytosis.� CT A/P with finding of acute sigmoid diverticulitis with associated small abscess formation.
CT A/P 10/25
IMPRESSION:
1. � Acute sigmoid diverticulitis with associated small abscess formation. Abscess measuring up to 3.0 cm in diameter. As above, this is in a position which is likely not amenable to percutaneous drainage.
2. � Hepatomegaly and hepatic fatty infiltration.
3. � Unchanged low-attenuation 1.3 cm nodule superior prostate gland, indeterminate etiology.�
CT A/P 10/27
IMPRESSION:
1. � Interval increase in size of sigmoid diverticular abscess as above, now measuring up to 3.8 cm in diameter. Associated pelvic inflammatory changes with wall thickening of the sigmoid colon, pericolonic inflammatory stranding, likely reactive
inflammatory wall thickening of the urinary bladder.
2. � Hepatomegaly and hepatic fatty infiltration.
3. � Unchanged low-attenuation nodule prostate gland.
Acute Sigmoid Diverticulitis with associated abscess formation 3.0 cm
-patient is admitted to medicine with CRS consulting.
-increasing pain led to repeat CT on HD 2 with finding increased size abscess 3.8 cm
-NPO
-IV Zosyn AT 4.5 q6 dosing (dose increased on 10/27)
-IR consulted for abscess drainage today
-appreciate CRS; if IR not successful consider laparoscopic drainage versus may need OR
-pain control
Essential Hypertension
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
DVT PPx Lovenox subQ
FULL CODE
Anticipated Discharge: > 48 hours
Subjective/Interval History
-
Date of Service: October 28, 2023
continuing to have pain lower abdomen + increased distention, difficult to pass gas
Objective Data
-
Labs:
Laboratory Results
10/28/23
07:54
WBC 7.4
Hgb 14.1
Hct 38.6 L
Plt Count 247
PT 15.2 H
INR 1.22
Sodium 134 L
Potassium 3.9
Chloride 99
Carbon Dioxide 25
BUN 6 L
Creatinine 1.0
Glucose 87
Calcium 9.0
Vital Signs:
Vital Signs
Temp Pulse Resp BP Pulse Ox
100.0 F 76 16 145/92 96
10/28/23 07:55 10/28/23 07:55 10/28/23 07:55 10/28/23 07:55 10/28/23 07:55
I&O
10/27/23 10/28/23 10/29/23
06:59 06:59 06:59
Intake Total 1320 / 1320 960 / 960
Balance 1320 / 1320 960 / 960
Review of Systems
-
History Source: Patient
All other systems: Reviewed and negative
Physical Exam
-
General: No Apparent Distress
HEENT: PERRLA
Respiratory: Clear to Auscultation; Negative Wheezes
Cardiac: Regular Rhythm and S1/S2
GI: Other (distended, tenderness lower quadrants, no rebound or guarding )
Musculoskeletal: No Edema
Skin: Warm and Dry; Negative Rash
Neuro: AO x 3
Psych: Calm
Data Reviewed
-
Diagnostic Radiology: Report Reviewed by me
Labs: Labs Reviewed by me
[2023-10-28] MEDS: DILAUDID 1 MG IV ×4 (11:03→20:45)
--- NOTE | 2023-10-28 11:37 | W.PN.CRS1 ---
Today's Communication / Plan
-
f/u IR drainage for increased pericolonic abscess
cont NPO
Assessment/Plan
-
53-year-old male with a PMH of HTN, HLD, acne and diverticulitis (first episode in January 2023, occurred in [place], was told there was a perforation and was treated nonoperatively in the hospital for 7 days; second episode occurred April 2023, CT
in [place] ED showing uncomplicated diverticulitis) who presents with 2 days of worsening abdominal pain, CT showing diverticulitis with 3.2cm abscess, not accessible by IR. His last colonoscopy was 6 months ago and reports that it is normal,
recommended to repeat in 10 years.� This was done in [facility]; repeat CT yesterday showing increase in den-colonic abscess, 3.8 cm from 3.1cm
Tmax 100.1, VSS
WBC 7.4, from 7.3
-Follow-up IR, will attempt IR guided abscess drainage; explained further options if unable to place, including broadening antibiotics and monitoring vs laparoscopic drain placement versus Mcnally's procedure; if IR drainage successful, will
continue nonoperative management
�Continue n.p.o., okay for p.o. meds
�Continue IV Zosyn
� Pain control, recommend Toradol and Tylenol as needed, dilaudid PRN
� OOB/IS
�Appreciate hospitalist
Subjective Data
Subjective Data
Date of Service: October 28, 2023
No overnight events.
Pain continues to be bothersome, somewhat controlled.
Denies nausea/vomiting. Currently n.p.o.
+voiding
Objective Data
-
Vital Signs
Temp Pulse Resp BP Pulse Ox
100.0 F 76 16 145/92 96
10/28/23 07:55 10/28/23 07:55 10/28/23 07:55 10/28/23 07:55 10/28/23 07:55
Intake & Output
10/27/23 10/28/23 10/29/23
06:59 06:59 06:59
Intake Total 1320 / 1320 960 / 960
Balance 1320 / 1320 960 / 960
Intake:
Oral fluids 120 / 120 960 / 960
IV fluids (Total) 1100 / 1100
IV piggybacks 100 / 100
Other:
Number of approximated MODERATE 2 3
amounts of urine
Lab Results
10/28/23 07:54
10/28/23 07:54
Physical Exam
-
General: No Acute Distress and AOx3
Abdomen: Soft, Non Distended, Tender (Mildly tender in the suprapubic to LLQ), No Guarding and No Rebound
Skin: Warm and Dry
--- NOTE | 2023-10-28 11:39 | CM ---
Patient seen bedside, reports no new concerns. Per Hospitalist note, IR consulted for abscess drainage. CM will continue to follow for discharge planning needs.
Plan; home with , watch for VN needs, patient may need OR.
[2023-10-28] MEDS: D5LR 1000 IV (12:55)
--- NOTE | 2023-10-28 15:40 | W.PN.UPDATE ---
Update Note
Progress Note Update
- Successful CT guided drainage of pelvic diverticular abscess
- 10ml green pus aspirated; sent for culture. 8.5F drain placed.
- Pt tolerated well.
[2023-10-28] MEDS: LOVENOX 40 MG SC (17:22)
[2023-10-28] MEDS: ZOFRAN 4 MG IV (17:30)
--- NOTE | 2023-10-28 19:56 | PTCARENOTE ---
Patient returned from IR with perc drain in mid abdomen for diverticuar abcess. Dressing CDI. Bulb drain attached to gown with safety pin. Draining serosanguionous fluid. Patient states that pain is much better. Patient placed on clear liquid diet
at the approval of GI. Patient with an episode of brief chills after drinking tray, which resolved quickly. Patient resting in bed comfortably at this time.
[2023-10-28] MEDS: MYLICON 80 MG PO (20:50)
[2023-10-29] MEDS: DILAUDID 1 MG IV ×2 (00:05→09:03)
[2023-10-29] MEDS: ZOFRAN 4 MG IV (00:06)
[2023-10-29] MEDS: D5LR 1000 IV ×2 (02:49→09:05)
[2023-10-29 03:11] VITALS: BP 125/84
[2023-10-29] MEDS: ZOSYN 100 IV ×3 (05:37→17:08)
[2023-10-29 07:14] VITALS: BP 133/78
[2023-10-29 07:33] LABS: Hemoglobin 12.8 g/dL (13.0-18.0); Mean Corp Hgb Conc. 36.6 g/dL (33.0-37.0); Mean Corpuscular Hgb 32.4 pg (27.0-31.0); Mean Corpuscular Volume 88.6 fL (80.0-94.0); Platelet Count 248 10^3/uL (130-400); Red Blood Cell Count 3.95 10^6/uL (4.70-6.10); Red Cell Dist. Width 11.6 % (11.5-14.5); White Blood Cell Count 6.5 10^3/uL (4.8-10.8)
[2023-10-29 07:54] LABS: Blood Urea Nitrogen 4 mg/dl (9-20); Calcium 8.7 mg/dl (8.4-10.2); Carbon Dioxide 31 mmol/L (22-30); Chloride 95 mmol/L (98-107); Estimated Creatinine Clearance 90 ml/min; Glucose 100 mg/dl (70-99); Potassium 3.9 mmol/L (3.5-5.1); Sodium 134 mmol/L (135-145); eGFR > 60.00
[2023-10-29] MEDS: BENICAR 40 MG PO (09:03)
--- NOTE | 2023-10-29 10:58 | W.PN.CRS1 ---
Addendum entered and electronically signed by Orion Costello MD 10/29/23 13:37:
I saw and examined the patient.
The DATA RECOVERY PLANNER's note was reviewed and I agree with the note.
Comment:
Seen earlier with DATA RECOVERY PLANNER.
IR drain in. Less pain except at drain site. Loose BMs.
Vitals ok and WBC 6.5.
Abdomen with tenderness at drain site.
Diet advanced to fulls.
Continue antibiotics and drain care.
Original Note:
Today's Communication / Plan
-
Full liquid diet
Continue IR drain
Assessment/Plan
-
53-year-old male with recurrent diverticulitis and abscess. Now s/p IR drainage on 10/28/23
AFVSS
No leukocytosis
Blood cx with NGTD
IR cultures pending
- Given successful IR drainage will continue to follow for improvement with nonoperative management at this time
� Tolerating clears, will advance to FLD and follow
� Continue IV Zosyn and await cultures
� Pain control, recommend Toradol and Tylenol as needed, dilaudid PRN
� OOB/IS
�Appreciate hospitalist
Subjective Data
Subjective Data
Date of Service: October 29, 2023
Patient seen and evaluated at bedside with Dr. Costello. Denies n/v. Abdomen sore near IR drain insertion site. Otherwise feeling a bit better. Frequent BM's just after drain placed yesterday but now slowing
Objective Data
-
Vital Signs
Temp Pulse Resp BP Pulse Ox
98.1 F 65 16 133/78 96
10/29/23 07:14 10/29/23 07:14 10/29/23 07:14 10/29/23 07:14 10/29/23 07:14
Intake & Output
10/28/23 10/29/23 10/30/23
06:59 06:59 06:59
Intake Total 960 / 960 3550 / 3550
Output Total 50 / 50
Balance 960 / 960 3500 / 3500
Intake:
Oral fluids 960 / 960 900 / 900
IV fluids (Total) 2250 / 2250
IV piggybacks 400 / 400
Amount instilled into Drain (
Total)
Upper Pelvis Placed in IR
Output:
Drain Output (Total) 50 / 50
Upper Pelvis Placed in IR 50 / 50
Other:
Number of approximated MODERATE 3 4
amounts of urine
Number of unmeasured liquid
stools
Rectum 8
Lab Results
10/29/23 06:40
10/29/23 06:40
Physical Exam
-
General: No Acute Distress
Chest: Clear
Abdomen: Soft, Non Distended and Tender (near IR drain)
Skin: Warm
Wound: Other (IR drain with cloudy SSF, dressing intact)
--- NOTE | 2023-10-29 11:18 | W.PN.HOSP.TC ---
Today's Communication/Plan
-
Fulls
stop fluids
F/U cultures
decrease dilaudid dosing
Assessment / Plan
Assessment / Plan
Mr. Allen Fowler is a 53 yo man with hx diveritculitis x 2 over past 10 months, HTN presents to the ER with abdominal pain x 4 days increasing in intensity.� He took Augmentin prescribed to him as outpatient without effect.� Triage vitals
stable.� Labs without leukocytosis.� CT A/P with finding of acute sigmoid diverticulitis with associated small abscess formation.
CT A/P 10/25
IMPRESSION:
1. � Acute sigmoid diverticulitis with associated small abscess formation. Abscess measuring up to 3.0 cm in diameter. As above, this is in a position which is likely not amenable to percutaneous drainage.
2. � Hepatomegaly and hepatic fatty infiltration.
3. � Unchanged low-attenuation 1.3 cm nodule superior prostate gland, indeterminate etiology.�
CT A/P 10/27
IMPRESSION:
1. � Interval increase in size of sigmoid diverticular abscess as above, now measuring up to 3.8 cm in diameter. Associated pelvic inflammatory changes with wall thickening of the sigmoid colon, pericolonic inflammatory stranding, likely reactive
inflammatory wall thickening of the urinary bladder.
2. � Hepatomegaly and hepatic fatty infiltration.
3. � Unchanged low-attenuation nodule prostate gland.
Acute Sigmoid Diverticulitis with associated abscess formation 3.0 cm
-patient is admitted to medicine with CRS consulting.
-increasing pain led to repeat CT on HD 2 with finding increased size abscess 3.8 cm
-now s/p IR guided drainage with YARA placement 10/28
-IV Zosyn AT 4.5 q6 dosing (dose increased on 10/27)
-F/U culture obtained by IR
-appreciate CRS
-pain control - decrease dilaudid dosing
Essential Hypertension
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
DVT PPx Lovenox subQ
FULL CODE
Anticipated Discharge: 24 - 48 hours
Subjective/Interval History
-
Date of Service: October 29, 2023
feeling much better after IR guided drainage
tolerating fulls
drinking enough
Objective Data
-
Labs:
Laboratory Results
10/29/23
06:40
WBC 6.5
Hgb 12.8 L
Hct 35.0 L
Plt Count 248
Sodium 134 L
Potassium 3.9
Chloride 95 L
Carbon Dioxide 31 H
BUN 4 L
Creatinine 1.1
Glucose 100 H
Calcium 8.7
Vital Signs:
Vital Signs
Temp Pulse Resp BP Pulse Ox
98.1 F 65 16 133/78 96
10/29/23 07:14 10/29/23 07:14 10/29/23 07:14 10/29/23 07:14 10/29/23 07:14
I&O
10/28/23 10/29/23 10/30/23
06:59 06:59 06:59
Intake Total 960 / 960 3550 / 3550 5 / 5
Output Total 50 / 50
Balance 960 / 960 3500 / 3500 5 / 5
Review of Systems
-
History Source: Patient
All other systems: Reviewed and negative
Physical Exam
-
General: No Apparent Distress
HEENT: PERRLA
Respiratory: Clear to Auscultation; Negative Wheezes
Cardiac: Regular Rhythm and S1/S2
GI: Other (distended, tenderness lower quadrants, no rebound or guarding; YARA drain with serosanguinous fluid )
Musculoskeletal: No Edema
Skin: Warm and Dry; Negative Rash
Neuro: AO x 3
Psych: Calm
Data Reviewed
-
Diagnostic Radiology: Report Reviewed by me
Labs: Labs Reviewed by me
[2023-10-29] MEDS: DILAUDID 0.75 MG IV ×4 (11:42→21:10)
[2023-10-29 15:30] VITALS: BP 130/86
--- NOTE | 2023-10-29 16:08 | CM ---
MD entered order for VN
Spoke with patient and SO [facility] Offered VN he requested [facility] entered in care port
[facility] Home with [facility] if accepted
[2023-10-29] MEDS: MYLICON 80 MG PO ×2 (16:30→21:15)
[2023-10-29] MEDS: LOVENOX 40 MG SC (17:08)
[2023-10-29 23:53] VITALS: BP 133/86
[2023-10-30] MEDS: ZOSYN 100 IV ×5 (00:11→23:11)
[2023-10-30] MEDS: DILAUDID 0.75 MG IV ×2 (00:56→06:37)
[2023-10-30 07:45] LABS: Hematocrit 37.1 % (39.0-52.0); Hemoglobin 13.3 g/dL (13.0-18.0); Mean Corp Hgb Conc. 35.8 g/dL (33.0-37.0); Mean Corpuscular Hgb 31.6 pg (27.0-31.0); Mean Corpuscular Volume 88.1 fL (80.0-94.0); Mean Platelet Volume 9.4 fL (7.4-10.4); Platelet Count 279 10^3/uL (130-400); Red Blood Cell Count 4.21 10^6/uL (4.70-6.10); Red Cell Dist. Width 11.6 % (11.5-14.5); White Blood Cell Count 7.5 10^3/uL (4.8-10.8)
[2023-10-30 07:55] VITALS: BP 147/91
[2023-10-30 08:10] LABS: Blood Urea Nitrogen 2 mg/dl (9-20); Carbon Dioxide 30 mmol/L (22-30); Chloride 98 mmol/L (98-107); Estimated Creatinine Clearance 90 ml/min; Glucose 91 mg/dl (70-99); Sodium 134 mmol/L (135-145); eGFR > 60.00
[2023-10-30 08:17] LABS: Potassium 4.1 mmol/L (3.5-5.1)
[2023-10-30] MEDS: BENICAR 40 MG PO (08:57)
[2023-10-30] MEDS: DILAUDID 0.5 MG IV (10:31)
--- NOTE | 2023-10-30 10:48 | W.PN.CRS1 ---
Addendum entered and electronically signed by Allen Glez MD 10/30/23 18:06:
I saw and examined the patient.
The FILM SOUND COORDINATOR's note was reviewed and I agree with the note.
Comment:
53-year-old male with a PMH of HTN, HLD, acne and diverticulitis (first episode in January 2023, occurred in [place], was told there was a perforation and was treated nonoperatively in the hospital for 7 days; second episode occurred April 2023, CT
in [place] ED showing uncomplicated diverticulitis) who presents with 2 days of worsening abdominal pain, CT showing diverticulitis with 3.2cm abscess, not accessible by IR. His last colonoscopy was 6 months ago and reports that it is normal,
recommended to repeat in 10 years.� This was done in [facility]; repeat CT yesterday showing increase in den-colonic abscess, 3.8 cm from 3.1cm; s/p IR drain placement on 10/28/23 with 10mL of pus
AFVSS, abdomen soft, ND, mildly TTP in the SP region (improved overall)
WBC 7.5, IR drain 20 mL sanguinous/purulent
-Advance to low residue
�Continue IV Zosyn
� Pain control, recommend Toradol and Tylenol as needed, dilaudid PRN
� OOB/IS
�Appreciate hospitalist; okay for DC from CRS standpoint with drain study in 2 weeks and follow-up with me in 3 weeks
Original Note:
Today's Communication / Plan
-
dispo planning
Assessment/Plan
-
53-year-old male with recurrent diverticulitis and abscess. Now s/p IR drainage on 10/28/23
AFVSS
No leukocytosis
Blood cx with NGTD
Final IR cultures pending: GN bacilli and strep in prelim cx
- Continue IR drain and plan outpatient drain study in 2 weeks
� Advance to LRD
� Continue antibiotics, will need transition to PO upon discharge. Recommend Augmentin.
� Pain control. Added oxycodone prn.
� OOB/IS
�Appreciate hospitalist
Clear for d/c from surgical standpoint on oral abx with drain in place once tolerating diet
Subjective Data
Subjective Data
Date of Service: October 30, 2023
Patient seen and examined at bedside with Dr. Glez. Denies n/v. Tolerating diet. Passing flatus and stool. Pain continues to improve. Discomfort locally around drain site.
Objective Data
-
Vital Signs
Temp Pulse Resp BP Pulse Ox
98.1 F 67 18 147/91 99
10/30/23 07:55 10/30/23 07:55 10/30/23 07:55 10/30/23 07:55 10/30/23 07:55
Intake & Output
10/29/23 10/30/23 10/31/23
06:59 06:59 06:59
Intake Total 3550 / 3550 4525 / 4525
Output Total 50 / 50 20 / 20
Balance 3500 / 3500 4505 / 4505
Intake:
Oral fluids 900 / 900 3720 / 3720
IV fluids (Total) 2250 / 2250 800 / 800
IV piggybacks 400 / 400
Amount instilled into Drain ( 5 / 5
Total)
Upper Pelvis Placed in IR 5 / 5
Output:
Drain Output (Total) 50 / 50 20 / 20
Upper Pelvis Placed in IR 50 / 50 20 / 20
Other:
Number of approximated MODERATE 4 8
amounts of urine
Number of approximated LARGE 4
amounts of urine
Number of unmeasured liquid
stools
Rectum 8
Lab Results
10/30/23 07:19
10/30/23 07:19
Physical Exam
-
General: No Acute Distress
Chest: Clear
Abdomen: Soft, Non Distended and Tender (near IR drain)
Skin: Warm
Wound: Other (IR drain with cloudy SSF, dressing intact)
--- NOTE | 2023-10-30 11:20 | W.PN.HOSP.TC ---
Today's Communication/Plan
-
pain meds switched to oxycodone
F/U final culture
IV Zosyn
Assessment / Plan
Assessment / Plan
Mr. Allen Fowler is a 53 yo man with hx diveritculitis x 2 over past 10 months, HTN presents to the ER with abdominal pain x 4 days increasing in intensity.� He took Augmentin prescribed to him as outpatient without effect.� Triage vitals
stable.� Labs without leukocytosis.� CT A/P with finding of acute sigmoid diverticulitis with associated small abscess formation.
CT A/P 10/25
IMPRESSION:
1. � Acute sigmoid diverticulitis with associated small abscess formation. Abscess measuring up to 3.0 cm in diameter. As above, this is in a position which is likely not amenable to percutaneous drainage.
2. � Hepatomegaly and hepatic fatty infiltration.
3. � Unchanged low-attenuation 1.3 cm nodule superior prostate gland, indeterminate etiology.�
CT A/P 10/27
IMPRESSION:
1. � Interval increase in size of sigmoid diverticular abscess as above, now measuring up to 3.8 cm in diameter. Associated pelvic inflammatory changes with wall thickening of the sigmoid colon, pericolonic inflammatory stranding, likely reactive
inflammatory wall thickening of the urinary bladder.
2. � Hepatomegaly and hepatic fatty infiltration.
3. � Unchanged low-attenuation nodule prostate gland.
Acute Sigmoid Diverticulitis with associated abscess formation 3.0 cm
-patient is admitted to medicine with CRS consulting.
-increasing pain led to repeat CT on HD 2 with finding increased size abscess 3.8 cm
-now s/p IR guided drainage with YARA placement 10/28
-IV Zosyn AT 4.5 q6 dosing (dose increased on 10/27)
-F/U culture obtained by IR --> final culture to be back on 10/31. Patient understands reason to stay until final culture (infection got worse on Augmentin, need to make sure bacteria isn't resistant)
-also need to make sure pain controlled on oral meds - oxycodone started today
Essential Hypertension
-NETWORK CONTROL TECHNICIAN Olmesartan
DVT PPx Lovenox subQ
FULL CODE
Anticipated Discharge: 24 - 48 hours
Subjective/Interval History
-
Date of Service: October 30, 2023
feeling better
was hoping to go home today
Objective Data
-
Labs:
Laboratory Results
10/30/23
07:19
WBC 7.5
Hgb 13.3
Hct 37.1 L
Plt Count 279
Sodium 134 L
Potassium 4.1
Chloride 98
Carbon Dioxide 30
BUN 2 L
Creatinine 1.1
Glucose 91
Calcium 9.0
Vital Signs:
Vital Signs
Temp Pulse Resp BP Pulse Ox
98.1 F 67 18 147/91 99
10/30/23 07:55 10/30/23 07:55 10/30/23 07:55 10/30/23 07:55 10/30/23 07:55
I&O
10/29/23 10/30/23 10/31/23
06:59 06:59 06:59
Intake Total 3550 / 3550 4525 / 4525
Output Total 50 / 50 20 / 20
Balance 3500 / 3500 4505 / 4505
Review of Systems
-
History Source: Patient
All other systems: Reviewed and negative
Physical Exam
-
General: No Apparent Distress
HEENT: PERRLA
Respiratory: Clear to Auscultation; Negative Wheezes
Cardiac: Regular Rhythm and S1/S2
GI: Other (mildly tender lower quadratns; YARA drain with serosanguinous fluid )
Musculoskeletal: No Edema
Skin: Warm and Dry; Negative Rash
Neuro: AO x 3
Psych: Calm
Data Reviewed
-
Diagnostic Radiology: Report Reviewed by me
Labs: Labs Reviewed by me
[2023-10-30 15:40] VITALS: BP 140/85
[2023-10-30] MEDS: LOVENOX 40 MG SC (17:05)
[2023-10-30] MEDS: MYLICON 80 MG PO (17:33)
[2023-10-30] MEDS: ROXICODONE 5 MG PO (17:33)
[2023-10-30] MEDS: ZOFRAN 4 MG IV (20:26)
[2023-10-30 23:26] VITALS: BP 124/83
[2023-10-31] MEDS: ZOSYN 100 IV (05:32)
[2023-10-31 07:50] VITALS: BP 139/80
[2023-10-31] MEDS: BENICAR 40 MG PO (08:18)
--- NOTE | 2023-10-31 09:34 | W.PN.HOSP.TC ---
Today's Communication/Plan
-
See bold
Assessment / Plan
Assessment / Plan
Mr. Allen Fowler is a 53 yo man with hx diveritculitis x 2 over past 10 months, HTN presents to the ER with abdominal pain x 4 days increasing in intensity.� He took Augmentin prescribed to him as outpatient without effect.� Triage vitals
stable.� Labs without leukocytosis.� CT A/P with finding of acute sigmoid diverticulitis with associated small abscess formation.
CT A/P 10/25
IMPRESSION:
1. � Acute sigmoid diverticulitis with associated small abscess formation. Abscess measuring up to 3.0 cm in diameter. As above, this is in a position which is likely not amenable to percutaneous drainage.
2. � Hepatomegaly and hepatic fatty infiltration.
3. � Unchanged low-attenuation 1.3 cm nodule superior prostate gland, indeterminate etiology.�
CT A/P 10/27
IMPRESSION:
1. � Interval increase in size of sigmoid diverticular abscess as above, now measuring up to 3.8 cm in diameter. Associated pelvic inflammatory changes with wall thickening of the sigmoid colon, pericolonic inflammatory stranding, likely reactive
inflammatory wall thickening of the urinary bladder.
2. � Hepatomegaly and hepatic fatty infiltration.
3. � Unchanged low-attenuation nodule prostate gland.
Acute Sigmoid Diverticulitis with associated abscess formation 3.0 cm
-increasing pain led to repeat CT on HD 2 with finding increased size abscess 3.8 cm
-now s/p IR guided drainage with YARA placement 10/28
-patient understands reason to stay until final culture (infection got worse on Augmentin, need to make sure bacteria isn't resistant)
-Wound cultures growing ESBL positive E. coli, will change Zosyn to Merrem
-Consult ID
Essential Hypertension
-STRIPPING SHOVEL OILER Olmesartan
DVT prophylaxis�subcu Lovenox
Full code
Physical Exam
General: Obese, no acute distress
HEENT: Normocephalic, Atraumatic, EOMI, MMM
Respiratory: Clear to Auscultation bilaterally
Cardiac: Normal S1/S2, Regular Rate and Rhythm
GI: Soft, appropriately tender, YARA drain intact
Extremities: No Clubbing, Cyanosis, or Edema
Anticipated Discharge: Within 24 hours
Subjective/Interval History
-
Date of Service: October 31, 2023
Patient reports continued abdominal pain. Has some nausea, no vomiting.
Objective Data
-
Vital Signs:
Vital Signs
Temp Pulse Resp BP Pulse Ox
98.1 F 71 16 139/80 100
10/31/23 07:50 10/31/23 07:50 10/31/23 07:50 10/31/23 07:50 10/31/23 07:50
I&O
10/30/23 10/31/23 11/01/23
06:59 06:59 06:59
Intake Total 4525 / 4525 2400 / 2400
Output Total
Balance 4505 / 4505 2393 / 2393
--- NOTE | 2023-10-31 10:44 | PTCARENOTE ---
Patient with report of ESBL from wound abcess. Dr. Vargas notified. ID consult placed and Merrem ordered. Patient placed on contact precautions. Educated patient regarding precautions and plan. Patient verbalizes understanding of plan of care.
--- NOTE | 2023-10-31 10:55 | CM ---
Addendum entered by Valerie Rodriguez 10/31/23 14:49:
CM spoke with patient and significant other, agreeable to [facility] for IV antibiotics, referral faxed to [phone]. Patient reports he has had home IV antibiotics in the past, in [place]. CM will update [facility] upon patients discharge.
Awaiting confirmation from [facility] to accept patient.
Original Note:
Patient seen with Dr. Vargas, consult for ID regarding IV antibiotics. CM will continue to follow for discharge planning needs, watch for home IV/outpatient antibiotic needs.
Plan; home with [facility], watch for home IV antibiotic needs.
--- NOTE | 2023-10-31 11:03 | W.PN.CRS1 ---
Addendum entered and electronically signed by Orion Costello MD 10/31/23 17:27:
I saw and examined the patient.
The PA's note was reviewed and I agree with the note.
Comment:
Seen in a.m. with PA.
Still some drain related discomfort. Otherwise no complaints. Tolerating low residue diet. Bowels working.
Vitals reasonable. No blood work today.
Mild tenderness around the drain site. No rebound or guarding.
Patient doing well from a surgical perspective.
Discharge with drain on antibiotics per hospitalist and ID.
Original Note:
Today's Communication / Plan
-
ok for d/c from our perspective
Assessment/Plan
-
53-year-old male with a PMH of HTN, HLD, acne and diverticulitis (first episode in January 2023, occurred in [place], was told there was a perforation and was treated nonoperatively in the hospital for 7 days; second episode occurred April 2023, CT
in [place] ED showing uncomplicated diverticulitis) who presents with 2 days of worsening abdominal pain, CT showing diverticulitis with 3.2cm abscess, not accessible by IR. His last colonoscopy was 6 months ago and reports that it is normal,
recommended to repeat in 10 years.� This was done in [facility]; repeat CT yesterday showing increase in den-colonic abscess, 3.8 cm from 3.1cm; s/p IR drain placement on 10/28/23 with 10mL of pus
1. Continue low residue diet.
2. IV antibiotics - zosyn.
3. Pain control.
4. Okay for DC from CRS standpoint with drain study in 2 weeks and follow-up with Dr. Glez in 3 weeks
Subjective Data
Subjective Data
Date of Service: October 31, 2023
Patient states he is 'sore' in his RLQ. Otherwise, he has no complaints. He is tolerating a diet. He has bowel function. He denies nausea or vomiting.
Objective Data
-
Vital Signs
Temp Pulse Resp BP Pulse Ox
98.1 F 71 16 139/80 100
10/31/23 07:50 10/31/23 07:50 10/31/23 07:50 10/31/23 07:50 10/31/23 07:50
Intake & Output
10/30/23 10/31/23 11/01/23
06:59 06:59 06:59
Intake Total 4525 / 4525 2400 / 2400
Output Total
Balance 4505 / 4505 2393 / 2393
Intake:
Oral fluids 3720 / 3720 2400 / 2400
IV fluids (Total) 800 / 800
Amount instilled into Drain (
Total)
Upper Pelvis Placed in IR
Output:
Drain Output (Total)
Upper Pelvis Placed in IR
Other:
Number of approximated MODERATE 8 3
amounts of urine
Number of approximated LARGE 4
amounts of urine
Lab Results
10/30/23 07:19
10/30/23 07:19
Physical Exam
-
General: No Acute Distress and AOx3
Abdomen: Soft, Non Distended and Non Tender
Skin: Warm and Dry
[2023-10-31] MEDS: MERREM 500 MG IV ×3 (11:12→23:11)
[2023-10-31] MEDS: STERILE WATER FOR INJECTION 10 ML IV ×3 (11:12→23:12)
[2023-10-31] MEDS: DILAUDID 0.5 MG IV ×4 (11:24→23:12)
[2023-10-31] MEDS: ROXICODONE 5 MG PO ×2 (13:13→18:08)
--- NOTE | 2023-10-31 13:28 | CON.ID ---
Consultation
-
Date/Time Consultation Requested: 10/31/2023, 0935
Date/Time Consultation Performed: 10/31/2023, 1330
Requesting Provider: Dr. Belinda Vargas
Performing Provider: Dr. Paula Loya
Reason for Consultation: ESBL diverticulitis
Chief Complaint / Past History
Chief Complaint
Abdominal pain
History of Present Illness
53 year old male with history of HTN who presented to the ED on10/25/23 with 4 day history of lower abdominal pain and diarrhea. CT showed acute sigmoid diverticulitis with small abscess. This is his 3rd episode of diverticulitis over the past
year. He was started on Zosyn. He did not improve. Repeat CT a/p showed enlarging abscess. 10/28 s/p perc drain placement. Cx: ESBL-E. coli. Abx changed to meropenem today. Abdomen better after perc drain. + diarrhea persists. C. diff neg.
Past History
Additional Past Medical History:
Recurrent diverticulitis
HTN
Achilles tendon surgery
b/l hip surgery
shoulder, neck surgery
wrist surgery
appendectomy
tonsillectomy
vasectomy
Allergy History:
clarithromycin [From Biaxin] Allergy (Verified 10/25/23 09:28)
Rash
Sulfa (Sulfonamide Antibiotics) Allergy (Verified 10/25/23 09:28)
Rash
Medications Reviewed: Yes
Current Antibiotics:
Zosyn (10/27 -10/30)
Meropenem day 1
Social History
Tobacco: Former Smoker
Alcohol: Daily (2 wine)
Drug: None
Personal:
Living: With Family
Family History
Family History: Not Pertinent
Review of Systems
Review of Systems
General: Fever (low grade) and Change in Appetite; Negative Chills
HEENT: Negative Sinus Problems, Headache or Pharyngitis
Respiratory: Negative Dyspnea or Cough
Gasteroenterology: Negative Nausea or Vomiting
Genital / Urological: Negative Dysuria
Neurological: Negative Headache or Dizziness
All systems: All other systems were reviewed and were negative
Vital Signs
Temp Pulse Resp BP Pulse Ox
98.1 F 71 16 139/80 100
10/31/23 07:50 10/31/23 07:50 10/31/23 07:50 10/31/23 07:50 10/31/23 07:50
Physical Exam
Physical Exam
Constitutional: No Acute Distress and Non-toxic
Eyes: Pupils Equal and Sclera Anicteric
Cardiovascular: Regular Rate and S1/S2
Pulmonary: Clear
Gastrointestinal: Soft, Tender (mid to right low abd), Non Distended, Normal Bowel Sounds and Other (YARA drain with cloudy dark red fluid)
Genito-Urinary: Negative Boyce or CVA Tenderness
Extremities: Negative Edema
Neurological: AO x 3
Lab / Diagnostic Study Results
10/30/23 07:19
10/30/23 07:19
Abs Immat Gran (auto) 0.0 10^3/uL (0-0.05) 10/25/23 09:55
Absolute Neuts (auto) 7.0 10^3/uL (1.4-6.5) H 10/25/23 09:55
Absolute Lymphs (auto) 1.0 10^3/uL (1.2-3.4) L 10/25/23 09:55
Absolute Monos (auto) 1.3 10^3/uL (0.1-0.6) H 10/25/23 09:55
Absolute Basos (auto) 0.0 10^3/uL (0-0.2) 10/25/23 09:55
Immature Gran % 0.2 % (0-0.5) 10/25/23 09:55
Neutrophils % 74.7 % (42.2-75.2) 10/25/23 09:55
Lymphocytes % 10.4 % (20.5-51.1) L 10/25/23 09:55
Monocytes % 13.6 % (1.7-9.3) H 10/25/23 09:55
Eosinophils % 0.7 % (0-6) 10/25/23 09:55
Basophils % 0.4 % (0-2) 10/25/23 09:55
PT 15.2 Sec (11.4-14.6) H 10/28/23 07:54
INR 1.22 10/28/23 07:54
Lactic Acid 0.7 mmol/L (0.7-2.0) 10/25/23 12:12
Microbiology Results
Micro:
10/28/23 15:18 Wound Culture - Final
Abscess Escherichia coli - ESBL
Gram Stain - Final
10/25/23 12:12 Blood Culture - Final
Blood/Venous No Growth - Final Report
10/25/23 12:12 Blood Culture - Final
Blood/Venous No Growth - Final Report
10/25/23 CT a/p: Acute sigmoid diverticulitis with associated small abscess formation. Abscess measuring up to 3.0 cm in diameter. As above, this is in a position which is likely not amenable to percutaneous drainage.
10/27/23 CT a/p: Interval increase in size of sigmoid diverticular abscess as above, now measuring up to 3.8 cm in diameter. Associated pelvic inflammatory changes with wall thickening of the sigmoid colon, pericolonic inflammatory stranding, likely
reactive inflammatory wall thickening of the urinary bladder.
Assessment / Plan
# Diverticulitis, 3rd episode
# Diverticular abscess s/p perc drain 10/28. Cx ESBL- E. coli
Plan:
- Place midline
- Ertapenem 1g IV q24h until drain removal. Per colorectal, for abscessogram in 2 weeks.
-Home infusion sheet submitted to supportive employment case manager.
[2023-10-31 15:45] VITALS: BP 135/84
[2023-10-31] MEDS: LOVENOX 40 MG SC (17:56)
--- NOTE | 2023-10-31 18:29 | PTCARENOTE ---
Received patient from at 18:20. Pt ambulated from wheelchair to bed w/o incident. Pt assessed by this RN, pt AAOx3, call samuels and belongings within reach. YARA drain flushed with 5mlNSS. Pt girlfriend at bedside.
[2023-10-31] MEDS: FLUSH (NSS) 2 FLUSH IV ×2 (19:24→23:13)
[2023-10-31] MEDS: ZOFRAN 4 MG IV (21:02)
[2023-10-31] MEDS: TYLENOL 650 MG PO (21:47)
[2023-10-31 23:00] VITALS: BP 155/99
[2023-11-01] MEDS: INVANZ 60 MG IV (05:56)
[2023-11-01] MEDS: STERILE WATER FOR INJECTION IV (05:56)
[2023-11-01] MEDS: FLUSH (NSS) 2 FLUSH IV (05:57)
[2023-11-01 07:00] VITALS: BP 124/76
[2023-11-01] MEDS: BENICAR 40 MG PO (07:41)
--- NOTE | 2023-11-01 08:15 | W.PN.HOSP.TC ---
Today's Communication/Plan
-
Discharge today
Assessment / Plan
Assessment / Plan
Mr. Allen Fowler is a 53 yo man with hx diveritculitis x 2 over past 10 months, HTN presents to the ER with abdominal pain x 4 days increasing in intensity.� He took Augmentin prescribed to him as outpatient without effect.� Triage vitals
stable.� Labs without leukocytosis.� CT A/P with finding of acute sigmoid diverticulitis with associated small abscess formation.
CT A/P 10/25
IMPRESSION:
1. � Acute sigmoid diverticulitis with associated small abscess formation. Abscess measuring up to 3.0 cm in diameter. As above, this is in a position which is likely not amenable to percutaneous drainage.
2. � Hepatomegaly and hepatic fatty infiltration.
3. � Unchanged low-attenuation 1.3 cm nodule superior prostate gland, indeterminate etiology.�
CT A/P 10/27
IMPRESSION:
1. � Interval increase in size of sigmoid diverticular abscess as above, now measuring up to 3.8 cm in diameter. Associated pelvic inflammatory changes with wall thickening of the sigmoid colon, pericolonic inflammatory stranding, likely reactive
inflammatory wall thickening of the urinary bladder.
2. � Hepatomegaly and hepatic fatty infiltration.
3. � Unchanged low-attenuation nodule prostate gland.
Acute Sigmoid Diverticulitis with associated abscess formation 3.0 cm
-increasing pain led to repeat CT on HD 2 with finding increased size abscess 3.8 cm
-now s/p IR guided drainage with YARA placement 10/28
-patient understands reason to stay until final culture (infection got worse on Augmentin, need to make sure bacteria isn't resistant)
-Wound cultures growing ESBL positive E. coli, Zosyn changed to Invanz
-Appreciate ID input, recommend IV Invanz until removal of drain. Per colorectal, for abscessogram in 2 weeks.
-Midline placed, outpatient IV antibiotics have been set up
-Cleared by colorectal surgery and ID for discharge, follow-up with colorectal surgery, ID, and his PCP in the office
Essential Hypertension
-COMPETITIVE ATHLETE Olmesartan
DVT prophylaxis�subcu Lovenox
Full code
Physical Exam
General: Obese, no acute distress
HEENT: Normocephalic, Atraumatic, EOMI, MMM
Respiratory: Clear to Auscultation bilaterally
Cardiac: Normal S1/S2, Regular Rate and Rhythm
GI: Soft, appropriately tender, YARA drain intact
Extremities: No Clubbing, Cyanosis, or Edema
Anticipated Discharge: Today
Subjective/Interval History
-
Date of Service: November 01, 2023
Patient reports continued abdominal pain, minimally improved with oxycodone 10 mg. No vomiting. No fever.
Objective Data
-
Vital Signs:
Vital Signs
Temp Pulse Resp BP Pulse Ox
97.9 F 62 16 124/76 95
11/01/23 07:00 11/01/23 07:00 11/01/23 07:00 11/01/23 07:00 11/01/23 07:00
I&O
10/31/23 11/01/23 11/02/23
06:59 06:59 06:59
Intake Total 2400 / 2400 1025 / 1025
Output Total
Balance 2393 / 2393 1015 / 1015
[2023-11-01] MEDS: ROXICODONE 10 MG PO (09:56)
--- NOTE | 2023-11-01 10:04 | W.PN.CRS1 ---
Today's Communication / Plan
-
colace/miralax
Assessment/Plan
-
53-year-old male with a PMH of HTN, HLD, acne and diverticulitis (first episode in January 2023, occurred in [place], was told there was a perforation and was treated nonoperatively in the hospital for 7 days; second episode occurred April 2023, CT
in [place] ED showing uncomplicated diverticulitis) who presents with 2 days of worsening abdominal pain, CT showing diverticulitis with 3.2cm abscess, not accessible by IR. His last colonoscopy was 6 months ago and reports that it is normal,
recommended to repeat in 10 years.� This was done in [facility]; repeat CT yesterday showing increase in den-colonic abscess, 3.8 cm from 3.1cm; s/p IR drain placement on 10/28/23 with 10mL of pus
1. Continue low residue diet.
2. IV antibiotics per ID given ESBL growth. Will need home infusions.
3. Pain control.
4. Will add colace BID and Miralax daily given constipation.
5. Okay for DC from CRS standpoint with drain study in 2 weeks and follow-up with Dr. Glez in 3 weeks
Subjective Data
Subjective Data
Date of Service: November 01, 2023
Patient states he feels 'okay'. He is not sure if he is hungry because he just woke up. He has intermittent cramping. He has flatus but has not had a bowel movement in almost four days.
Objective Data
-
Vital Signs
Temp Pulse Resp BP Pulse Ox
97.9 F 62 16 124/76 95
11/01/23 07:00 11/01/23 07:00 11/01/23 07:00 11/01/23 07:00 11/01/23 07:00
Intake & Output
10/31/23 11/01/23 11/02/23
06:59 06:59 06:59
Intake Total 2400 / 2400 1025 / 1025
Output Total
Balance 2393 / 2393 1015 / 1015
Intake:
Oral fluids 2400 / 2400 960 / 960
IV piggybacks 60 / 60
Amount instilled into Drain (
Total)
Upper Pelvis Placed in IR
Output:
Drain Output (Total)
Upper Pelvis Placed in IR
Other:
Number of approximated MODERATE 3
amounts of urine
Lab Results
10/30/23 07:19
10/30/23 07:19
Physical Exam
-
General: No Acute Distress and AOx3
Abdomen: Soft, Non Distended and Tender (mild RLQ)
Skin: Warm and Dry
--- NOTE | 2023-11-01 10:06 | W.PN.ID1 ---
Date of Service
Date of Service: November 01, 2023
Today's Communication
Can dc home when home IV set up.
Assessment / Plan
# Diverticulitis, 3rd episode
# Diverticular abscess s/p perc drain 10/28. Cx ESBL- E. coli
# sulfa allergy
Plan:
- Midline in place
- Continue Ertapenem 1g IV q24h until drain removal. Per colorectal, for abscessogram in 2 weeks.
-Home infusion sheet submitted to embedded case manager and in process of setting up.
Chief Complaint
-: Other (Diverticulitis)
Subjective / Review of Systems
Diarrhea improving. Still with some abdominal pain.
Vital Signs / Physical Exam
Vital Signs
Vital Signs
Temp Pulse Resp BP Pulse Ox
97.9 F 62 16 124/76 95
11/01/23 07:00 11/01/23 07:00 11/01/23 07:00 11/01/23 07:00 11/01/23 07:00
Physical Exam
Constitutional: No Acute Distress and Comfortable
Gastrointestinal: Tender (right-mid lower abdomen) and Other (YARA drain: cloudy dark red output)
Lines: Other (RUE midline in place.)
Objective Data
Lab Data
Lab Results
10/30/23 07:19
10/30/23 07:19
PT 15.2 Sec (11.4-14.6) H 10/28/23 07:54
INR 1.22 10/28/23 07:54
Estimated Creat Clear 90 ml/min 10/30/23 07:19
Lactic Acid 0.7 mmol/L (0.7-2.0) 10/25/23 12:12
Total Bilirubin 1.1 mg/dl (0.2-1.3) 10/25/23 09:55
AST 30 U/L (17-59) 10/25/23 09:55
ALT 48 U/L (0-50) 10/25/23 09:55
Alkaline Phosphatase 39 U/L (38-126) 10/25/23 09:55
Most recent labs reviewed.
Micro Results:
10/28/23 15:18 Wound Culture - Final
Abscess Escherichia coli - ESBL
Gram Stain - Final
10/25/23 12:12 Blood Culture - Final
Blood/Venous No Growth - Final Report
10/25/23 12:12 Blood Culture - Final
Blood/Venous No Growth - Final Report
10/25/23 CT a/p: Acute sigmoid diverticulitis with associated small abscess formation. Abscess measuring up to 3.0 cm in diameter. As above, this is in a position which is likely not amenable to percutaneous drainage.
10/27/23 CT a/p: Interval increase in size of sigmoid diverticular abscess as above, now measuring up to 3.8 cm in diameter. Associated pelvic inflammatory changes with wall thickening of the sigmoid colon, pericolonic inflammatory stranding, likely
reactive inflammatory wall thickening of the urinary bladder.
Care Review
Plan reviewed with: Physician (Dr. Tabitha Glez)
[2023-11-01] MEDS: MIRALAX 17 GRAMS PO (10:57)
--- NOTE | 2023-11-01 13:46 | W.DCSUMMARY ---
Discharge Summary
Discharge Data
Date of Admission: 10/25/23
Date of Discharge: 11/01/23
-
Pending Results: No
Hospital Course
Discharge diagnosis:
Acute sigmoid diverticulitis with associated abscess permission
Essential hypertension
Hepatomegaly
Fatty liver
Obesity
Consults: Colorectal surgery, ID, interventional radiology
Procedures:
10/28/2023 IR guided drainage of diverticular abscess with YARA drain placement
CT abdomen and pelvis:
1. � Interval increase in size of sigmoid diverticular abscess as above, now measuring up to 3.8 cm in diameter. Associated pelvic inflammatory changes with wall thickening of the sigmoid colon, pericolonic inflammatory stranding, likely reactive
inflammatory wall thickening of the urinary bladder.
2. � Hepatomegaly and hepatic fatty infiltration.
3. � Unchanged low-attenuation nodule prostate gland.
Hospital course:
53-year-old male with a past medical history of recurrent diverticulitis, hypertension, and obesity was admitted for diverticular abscess. Patient failed Augmentin outpatient. He was seen in conjunction with colorectal surgery. He was treated
with IV Zosyn, and had IR guided drainage of his diverticular abscess with YARA drain placement on 10/28/2023.
Wound cultures grew out ESBL positive E. coli. He was transition to Invanz. He was seen in conjunction with ID, who recommends continuing Invanz until drain removal. Per colorectal surgery, he is for abscessogram in 2 weeks. He had a midline
placed. Case management set up outpatient IV antibiotic infusion.
Patient is medically stable for discharge. He has been instructed to follow-up with colorectal surgery, ID, as well as his primary care doctor 1 week.
Disposition: Home with home care
Discharge planning: Required 39 minutes
Discharge Plan
-
Patient Disposition: Home with Home Care
Discharge Diagnosis/Procedures: Diverticular abscess status post percutaneous drainage on 10/08/2023
Condition: Fair
Diet: Low Fiber
Activity: As tolerated
Bathing Restrictions: OK to Shower
Wound Care: Keep the drain clean. Change dressing daily with showers and as needed.
Activity Restrictions/Additional Instructions:
You will need an evaluation of your drain in the radiology suite prior to your follow up visit with your colorectal surgeon. Please contact interventional radiology to schedule an appointment. A prescription for the study was faxed to them. The
phone number to schedule is [phone].
Use colace twice a day and Miralax daily to help with bowel movements.
Continue Ertapenem 1 gram IV every 24 hours until drain removal.
The infection doctor recommends no traveling while you are on IV antibiotics.
Please follow-up with your primary care doctor 1 week, colorectal surgery in 2�3 weeks, and the infection doctor in 2 weeks.
Referrals:
Allen Glez MD [Active] - in two to three weeks (Please have drain study in 2 weeks and follow up with your surgeon at least a few days afterwards. Call the surgeon's office to arrange the drain study)
Orlin Mondragon MD [Family Provider] - in one week
Paula Loya MD [Active] - in two weeks
Prescriptions:
New
polyethylene glycol 3350 [HealthyLax] 17 gram Powder In Packet
17 g PO DAILY Qty: 30 0RF
oxycodone 10 mg Tablet
10 mg PO Q4HPRN PRN (Reason: severe pain) 30 Days Qty: 50 0RF
Ertapenem [Invanz] 1000 MG
0.9% Sodium Chloride [Nss] 50 ML
120 mls/hr IV Q24H
Ordered By: Denilson Vargas MD
Last Taken: 11/01/23 05:56 60 mls
docusate sodium 100 mg Capsule
100 mg PO BID Qty: 60 0RF
acetaminophen [Acetaminophen Pain Relief] 500 mg tablet
1,000 mg PO TID Qty: 90 0RF
Continued
sucralfate 1 gram Tablet
1 g PO QIDPRN PRN (Reason: stomach discomfort)
therapeutic multivitamin Tablet
1 tab PO DAILY PRN (Reason: supplement)
metronidazole 0.75 % Cream
1 applic TOPICAL HSPRN PRN (Reason: apply to face for acne flares)
olmesartan 40 mg Tablet
40 mg PO DAILY
clindamycin-benzoyl peroxide 1.2 %(1 % base) -5 % Gel
1 applic TOPICAL DAILYPRN PRN (Reason: apply to face for acne flares)
cholecalciferol (vitamin D3) 125 mcg (5,000 unit) Tablet
125 mcg PO DAILY PRN (Reason: supplement)
vitamin E
1 tab PO DAILYPRN PRN (Reason: supplement)
Discontinued
amoxicillin-pot clavulanate 875-125 mg Tablet
1 tab PO Q8HPRN PRN (Reason: diverticulitis flares)
Patient Comments:
10/25/2023, pt. last filled on 04/20/2023 for 30 tablets.
Discharge Orders:
Discharge Patient (As Directed); Ordered 11/01/23
Ordered By: Denilson Vargas
Discharge Date and Time
Discharge Date/Time: 11/01/23 14:25
--- NOTE | 2023-11-01 14:54 | CM ---
CM following re: d/c planning
Chart reviewed
Pt is medically stable for d/c
Pt will be discharged home on IV antibiotics and have SN through [facility]; additionally [facility] for additional home care needs
Liz from [facility] was available for bedside teaching & patient's medication & supplies will be delivered this evening
No additional d/c needs to note
PLAN; d/c home with [facility] & [facility] fax: [phone]
== END 2023-11-01 14:25 | disposition home health service (06) | DRG 392 ==
LOC: 3 WEST ACU 14:25
PROVIDERS: Nurse Practitioner; Radiology Diagnostic Radiology; Registered Nurse; ADMITTING PHYSICIAN Student in an Organized Health Care Education/Training Program; ATTENDING PHYSICIAN Family Medicine; CONSULT PHYSICIAN Internal Medicine Infectious Disease; CONSULT PHYSICIAN Surgery; EMERGENCY PHYSICIAN Emergency Medicine; FAMILY PHYSICIAN Family Medicine
PROC: 0W9J30Z Drainage of Pelvic Cavity with Drainage Device, Percutaneous Approach (ICD-10-PCS; 2023-10-28)
DX: K57.20 Diverticulitis of large intestine with perforation and abscess without bleeding (principal); E87.1 Hypo-osmolality and hyponatremia; Z16.12 Extended spectrum beta lactamase (ESBL) resistance; I10 Essential (primary) hypertension; R16.0 Hepatomegaly, not elsewhere classified; K76.0 Fatty (change of) liver, not elsewhere classified; E66.9 Obesity, unspecified; E78.5 Hyperlipidemia, unspecified; B96.29 Other Escherichia coli [E. coli] as the cause of diseases classified elsewhere; Z68.30 Body mass index [BMI] 30.0-30.9, adult; Z87.891 Personal history of nicotine dependence; Z88.2 Allergy status to sulfonamides
CPT/HCPCS: 49406; 74177; 80048; 80053; 83605; 83690; 85025; 85027; 85610; 87040; 87070; 87077; 87186; 87205; 93005; 96361; 96365; 96375; 96376; 99152; 99153; 99285; J1335; Q9967

== ENCOUNTER → 2023-11-11 12:34 | Outpatient (REF) | payer BC, SELFPAY | LOC: RADI 12:34 | PROVIDERS: ATTENDING PHYSICIAN Physician Assistant; FAMILY PHYSICIAN Family Medicine | DX: Z46.82 Encounter for fitting and adjustment of non-vascular catheter (principal); K65.1 Peritoneal abscess | CPT/HCPCS: 49424; 76080 ==

== ENCOUNTER 2023-12-26 21:29 | Observation (INO) | payer BC, SELFPAY ==
[2023-12-26] VITALS (7 sets, daily range): BP systolic 136–151; BP diastolic 85–103; BMI 29.1
[2023-12-26 17:06] LABS: Glucose - Point of Care 84 mg/dl (70-99)
[2023-12-26 17:22] LABS: % Immature Granulocytes 0.2 % (0-0.5); % Lymphocytes 33.1 % (20.5-51.1); % Monocytes 7.3 % (1.7-9.3); % Neutrophils 57.4 % (42.2-75.2); Absolute Basophils 0.1 10^3/uL (0-0.2); Absolute Eosinophils 0.1 10^3/uL (0-0.7); Absolute Monocytes 0.5 10^3/uL (0.1-0.6); Absolute Neutrophils 3.5 10^3/uL (1.4-6.5); Hematocrit 42.7 % (39.0-52.0); Hemoglobin 15.3 g/dL (13.0-18.0); Mean Corp Hgb Conc. 35.8 g/dL (33.0-37.0); Mean Corpuscular Hgb 32.8 pg (27.0-31.0); Mean Corpuscular Volume 91.6 fL (80.0-94.0); Mean Platelet Volume 9.6 fL (7.4-10.4); Nucleated Red Blood Cells % 0 % (-); Platelet Count 230 10^3/uL (130-400); Red Blood Cell Count 4.66 10^6/uL (4.70-6.10); Red Cell Dist. Width 15.1 % (11.5-14.5); White Blood Cell Count 6.1 10^3/uL (4.8-10.8)
--- NOTE | 2023-12-26 17:27 | ED.CVA ---
History of Present Illness
General
Chief Complaint: CVA/TIA Symptoms
Source: patient and ambulance crew
Time Seen by Provider: 12/26/23 17:26
Onset of Stroke Symptoms
Onset of symptoms known: Yes
Date of onset of symptoms: 12/26/23
Travel History
Have you had any contact with someone who has COVID-19?: No
Do you have any symptoms of coronavirus? Fever > 100 degrees, chills, cough, shortness of breath, sore throat, loss of taste or smell, muscle aches, or headache?: No
History of Present Illness
History of Present Illness:
This patient is a 53-year-old male who says that he was feeling his usual self until sometime yesterday afternoon, he loosely estimates around 3 PM radiocephalic his brain was not working right. He says I 'cannot think or talk', and he was very
concerned about this. He describes having a similar event in August and his workup was negative at that time. He eventually went to bed around 7 PM. He slept until midnight, was awake for 15 minutes, symptoms unchanged, went back to bed and
awoke at 7 AM. When he woke at 7 AM he still felt like his brain was not working well. He called his girlfriend and asked 'am I making sense?', And she reassured him that he is. He says that it is difficult to describe what he is feeling, but he
just knew that he needed to not go to work today. He went to bed around noon and slept until 3 PM. When he woke up at 3 PM he continued of symptoms which prompted him to call his son who in turn called EMS. As per EMS report,, patient was
describing slurred speech, expressive aphasia, and word finding difficulties. He also was reporting right lower extremity weakness which started around 11 AM today. Patient denies headache, chest pain, back pain, neck pain, vertigo, nausea,
vomiting, numbness, tingling, fever, chills, change in vision, or other complaints.
Past History
Past History
ED Past Medical History: HTN and Psychiatric
ED Past Surgical History: Orthopedic
Social History
Tobacco: Non-smoker
Alcohol: Occasional
Drug: Other (Cannabis)
Personal: Single
Employment: Employed
Phy Exam
Physical Exam
Physical Exam:
GENERAL: Alert , in no apparent distress
EYE: pupils equal and reactive, no photophobia, no nystagmus, EOMI
NECK: Supple, no significant adenopathy.
ENT: o/p clr, mmm, questionable EtOH on breath.
CARDIAC: Regular rate and rhythm .
LUNGS: Clear breath sounds bilaterally, no acute respiratory distress, no wheezes/rales/rhonchi
ABDOMEN: Soft, without focal tenderness, no r/g, no cvat
NEUROLOGICAL: Alert and oriented, no focal neuro deficits, NIH equal to 0, patient very fluent in his conversation, no slurred speech, cranial nerves II through XII intact, [id number] normal, motor 5 out of 5, sensory intact, no drift
SKIN: Warm and dry, skin intact.
MUSCULOSKELETAL: No edema, well perfused.
PSYCH: Normal and appropriate interaction but tearful at times.
Scores
NIH Stroke Score
Level of Consciousness: 0 - Alert
LOC Questions: 0-Answers both correctly
LOC Commands: 0-Performs both correctly
Best Horizontal Gaze: 0-Normal
Visual Rushing: 0=Normal, no visual loss
Facial Palsy: 0=Normal, symmetrical
Motor - Right Arm: 0=No drift 10 seconds
Motor - Left Arm: 0=No drift 10 seconds
Motor - Right Le-No drift 5 seconds
Motor - Left Le-No drift 5 seconds
Limb Ataxia: 0-Absent
Sensation: 0-Normal
Best Language: 0-No aphasia
Dysarthria: 0-Normal
Extinction and Inattention: 0-No abnormality
Total Score:: 0
Course
Orders/Labs/Results
Orders:
Orders
12/26/23 17:03
Electrocardiogram (*1) Urgent
Reason for Study: Other
Other Reason for Exam: Possible Stroke
Bedside Glucose- Treatment ONCE
Cardiac Monitoring- Treatment ONCE
IV Insert/Care/Rem.- Treatment PRN
Vital Signs As Directed
Frequency: Other
Weight As Directed
Frequency: Once
Comment: ZERO STRETCHER SCALE FOR ACCURATE WEIGHT
12/26/23 17:04
CT Head W/o Iv Contrast Urgent
Comment:
Reason For Exam: right side weakenss, expressive aphagia
EKG- Treatment ONCE
12/26/23 17:14
Alcohol Urgent
Complete Blood Count/With Diff Urgent
Comprehensive Metabolic Panel Urgent
PTT Urgent
Prothrombin Time Urgent
Troponin I Urgent
12/26/23 17:34
Add On- LAB Urgent
Tests Added?: alcohol
12/26/23 19:40
Aspirin 325 mg PO NOW STA
Abnormal Lab Results
12/26/23
17:14
RBC 4.66 L 10^6/uL
(4.70-6.10)
MCH 32.8 H pg
(27.0-31.0)
RDW 15.1 H %
(11.5-14.5)
Carbon Dioxide 31 H mmol/L
(22-30)
BUN 7 L mg/dl
(9-20)
AST 71 H U/L
(17-59)
ALT 71 H U/L
(0-50)
Alkaline Phosphatase 32 L U/L
(38-126)
12/26/23 17:14
12/26/23 17:14
Vital Signs
Initial and Last Documented VS:
Initial Vital Signs
Pulse Resp Pulse Ox
111 19 97
12/26/23 17:03 12/26/23 17:03 12/26/23 17:03
Last Documented Vital Signs
Temp Pulse Resp BP Pulse Ox
98.5 F 101 23 142/91 92
12/26/23 17:15 12/26/23 19:30 12/26/23 19:30 12/26/23 19:00 12/26/23 19:30
*Critical Care Note
Total Time (30-74mins, 75-104mins- exclusive of procedures): Not Applicable
Update Note
Update Note:
Patient presents to the Emergency Department with __'brain not working'
Number and Complexity of Problems Addressed at the Encounter
� Chronic conditions affecting care:
� Acute Exacerbation and/or Progression of Chronic Illness:
� Differential Diagnosis includes: But not limited to intoxication, TIA/CVA, electrolyte disorder, etc. etc.
Amount and/or Complexity of Data to be Reviewed and Analyzed
� I performed an independent evaluation of and my interpretation is:
EKG:reviewed by me, sinus tach, lad, no acute ischemia
CT: Radiology report head CT unremarkable
Xrays:
Laboratory Studies:generally unremkarable except etoh 210
Other:
� Review of other/old records reveals: Patient was admitted October 2023 with diverticulitis with associated abdominal abscess
� Clinical information was obtained by an independent historian: EMS
� Prescriptions/Medications Considered but not given:
� Further testing considered but not performed:
Risk of Complications and/or Morbidity or Mortality of Patient Management
� Social determinants of health affecting care:
� Discussion with other providers (PCP, Hospitalists, Consultants, etc):
� Escalation of care including admission/observation vs risk of discharge considered: 5:32 PM patient met by me in room and then further history obtained on the way back to CAT scan as well as again in the room. Patient is not a
TNK candidate given NIH equal to 0.
Multiple reassessments here, no focal weakness noted, he still has symptoms in the sense that he feels times he cannot get the word out and is frustrated. He does work in the '[employer] business', and admits to drink up to 1 bottle of wine yesterday.
He strongly again denies drinking today. EtOH level noted here� Patient made aware� While some symptoms could be attributable to alcohol intoxication this does not exclude TIA as a cause of what he describes as right lower leg weakness in
particular. EMS reports that patient was dragging his leg while walking. I will give him aspirin here and admit for further workup.
ED Attending Note
-
Portions of this chart may have been created with voice recognition software.� Occasional wrong word or��sound alike� substitutions may have occurred due to the inherent limitations of voice recognition software.
Discharge Plan
Departure
Patient Disposition: Admit
Date of Disposition: 12/26/23
Time of Disposition: 19:28
Admit to: Telemetry
Admit to doctor: dione
Presentation/result/management discussed w/ accepting MD/DO: Hospitalist
Condition: Fair
Discharge Problem:
Leg weakness
Prescriptions:
No Action
sucralfate 1 gram Tablet
1 g PO QIDPRN PRN (Reason: stomach discomfort)
therapeutic multivitamin Tablet
1 tab PO DAILY PRN (Reason: supplement)
metronidazole 0.75 % Cream
1 applic TOPICAL HSPRN PRN (Reason: apply to face for acne flares)
olmesartan 40 mg Tablet
40 mg PO DAILY
clindamycin-benzoyl peroxide 1.2 %(1 % base) -5 % Gel
1 applic TOPICAL DAILYPRN PRN (Reason: apply to face for acne flares)
cholecalciferol (vitamin D3) 125 mcg (5,000 unit) Tablet
125 mcg PO DAILY PRN (Reason: supplement)
vitamin E
1 tab PO DAILYPRN PRN (Reason: supplement)
valacyclovir 1 gram tablet
1,000 mg PO DAILY PRN (Reason: herpes flare)
doxycycline hyclate 50 mg capsule
50 mg PO BID
phentermine 37.5 mg tablet
37.5 mg PO DAILY
montelukast 10 mg tablet
10 mg PO HS
pregabalin 75 mg capsule
75 mg PO BID
Patient Comments:
12/26/2023: last filled 12/19/23, 60 tabs for 30 days from [id number]
Referrals:
Orlin Mondragon MD [Family Provider] -
Interventions
Interventions:
*Risk Screen - Suicide Last Done: 12/26/23 17:25
*General Assessment Last Done: 12/26/23 17:25
*Neglect/Abuse Screening Last Done: 12/26/23 17:25
ED- Fall Risk Assessment Last Done: 12/26/23 17:28
*ED COVID-19 Vaccine History Last Done: 12/26/23 17:25
ED- Pulmonary Assessment Last Done: 12/26/23 17:19
ED- Neurological Assessment Last Done: 12/26/23 17:19
ED- Cardiac Assessment Last Done: 12/26/23 17:19
ED Swallowing Screen Last Done: 12/26/23 19:35
Discharge Date and Time
Print Language: HUNGARIAN
[2023-12-26 17:33] LABS: INR 1.09; PT 13.9 Sec (11.4-14.6)
[2023-12-26 17:34] LABS: APTT 28.1 Sec (23.4-35.0)
[2023-12-26 17:36] LABS: ALT (SGPT) 71 U/L (0-50); AST (SGOT) 71 U/L (17-59); Albumin 4.5 g/dl (3.5-5.0); Alkaline Phosphatase 32 U/L (38-126); Blood Urea Nitrogen 7 mg/dl (9-20); Calcium 9.4 mg/dl (8.4-10.2); Carbon Dioxide 31 mmol/L (22-30); Chloride 100 mmol/L (98-107); Estimated Creatinine Clearance 88 ml/min; Glucose 83 mg/dl (70-99); Potassium 4.3 mmol/L (3.5-5.1); Sodium 138 mmol/L (135-145); Total Bilirubin 0.4 mg/dl (0.2-1.3); Total Protein 7.1 g/dl (6.3-8.2); eGFR > 60.00
[2023-12-26 17:49] LABS: Troponin I < 0.012 ng/ml
[2023-12-26 18:13] LABS: Alcohol 209 mg/dl
[2023-12-26] MEDS: ASPIRIN 325 MG PO (19:59)
--- NOTE | 2023-12-26 20:01 | HPS.HSE ---
Family Physician
-
Family Physician: Orlin Mondragon
Chief Complaint
-
Slurred speech, expressive aphasia, dizziness with spinning sensation, feels right leg dragging
History of Present Illness
53-year-old male complaining of slurred speech, expressive aphasia ,word finding difficulty, dizziness with spinning sensation when he tries to walk and feels like he is dragging his right leg. He was noted to have an alcohol level of 209 in the
ER. 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 He reports drinking an excess amount of alcohol on Tuesday as he was sampling over 50 [place] flor. He states Tuesday yesterday at 3 PM he started
to have symptoms he then went to sleep at 7 PM he believes he woke up at 12 AM for approximately 15 minutes then has no recollection until 7 AM this morning when the symptoms returned. He has no idea if he consumed alcohol after sampling flor
yesterday, but his current alcohol level is 209. He has history of blacking out from alcohol use he reports back in college. He states he drinks daily 750 mL wine x 20 years with samplings and addition of wine at least twice a week. He denies
current headache, blurred vision, fever, chills, chest pain, palpitations, shortness with, cough, abdominal pain, nausea, vomiting, diarrhea, urinary symptoms. He reported to attending he had same symptoms in August and was worked up. [facility], there is no record of any visit here for those symptoms.
He has past medical history of alcohol abuse, hypertension, cannabis use, hepatomegaly, fatty liver, obesity, sigmoid diverticulitis with abscess October 2023
Medical History
Past Medical History
Past Medical History: Reports Other
Additional Past Medical History:
alcohol abuse with history of alcohol induced blackout in
hypertension
cannabis use
hepatomegaly,
fatty liver
obesity
sigmoid diverticulitis with abscess October 2023
Past Surgical History: Reports Other
Additional Past Surgical History:
Tonsillectomy
Appendectomy
Labrum shoulder repair
Bilateral hip reconstruction
Left Achilles tendon rupture repair
Vasectomy
Sigmoid diverticulitis with abscess drainage October 2023
Social History
Tobacco: Non-smoker
Alcohol: Daily (750 mL14% daily +1 sampling twice a week 50 samples each time)
Personal: Single (Has girlfriend)
Living: Other (With girlfriend)
Employment: Employed (Owns a [employer])
Family History
Family History: Other (Father A-fib, scarlet fever living mother unsure, 2 sisters healthy)
Allergies / Home Medications
Allergies reflects when Allergies were last updated in [employer].
Home Medications with original date entered in [employer]
Allergy/Medication List:
Allergies
Allergy/AdvReac Type Severity Reaction Status Date / Time
clarithromycin [From Biaxin] Allergy Rash Verified 12/26/23 17:03
Sulfa (Sulfonamide Allergy Rash Verified 12/26/23 17:03
Antibiotics)
Home Medications
cholecalciferol (vitamin D3) 125 mcg (5,000 unit) tablet 125 mcg PO DAILY PRN supplement 10/25/23
clindamycin 1.2 % (1 % base)-benzoyl peroxide 5 % topical gel 1 applic topical DAILYPRN PRN apply to face for acne flares 10/25/23
metronidazole 0.75 % topical cream 1 applic topical HSPRN PRN apply to face for acne flares 10/25/23
olmesartan 40 mg tablet 40 mg PO DAILY Blood Pressure 10/25/23
sucralfate 1 gram tablet 1 g PO QIDPRN PRN stomach discomfort 10/25/23
therapeutic multivitamin 1 tab PO DAILY PRN supplement 10/25/23
vitamin E 1 tab PO DAILYPRN PRN supplement 10/25/23
doxycycline hyclate 50 mg capsule 50 mg PO BID 12/26/23
montelukast 10 mg tablet 10 mg PO HS 12/26/23
phentermine 37.5 mg tablet 37.5 mg PO DAILY 12/26/23
pregabalin 75 mg capsule 75 mg PO BID 12/26/23
valacyclovir 1 gram tablet 1,000 mg PO DAILY PRN herpes flare 12/26/23
Review of Systems
-
History Source: Patient
A 12 point ROS was completed and negative except as noted: Yes
Constitutional: Denies Fever or Chills
EENT: Denies Sore Throat or Runny Nose
Respiratory: Denies Cough or Other
Cardiac: Denies Chest Pain, Diaphoresis, Palpitations or Syncope
Abdomen/GI: Denies Abdominal Pain, Nausea, Vomiting, Diarrhea, Constipated, Bloody Stools or Black Stools
: Denies Dysuria, Frequency, Flank Pain, Incontinence or Difficulty Voiding
Musculoskeletal: Denies Joint Pain or Edema
Skin: Denies Itching or Rash
Neurological: Reports Dizzy, Weakness and Other (Reports was dragging leg earlier); Denies Headache or Numbness
Endocrine: Reports No Symptoms
Hematologic/Lymphatic: Reports No Symptoms
Psych: Reports Calm
Physical Exam
Vital Signs
Vital Signs
Temp Pulse Resp BP Pulse Ox
98.5 F 101 23 142/91 92
12/26/23 17:15 12/26/23 19:30 12/26/23 19:30 12/26/23 19:00 12/26/23 19:30
Physical Exam
General: Comfortable and Conversant; No Pain, Fever, Chills or Slurred Speech
HEENT: NormoCephalic, Moist mucous membranes, PERRLA, [place] Conjunctivae and No Ptosis
Respiratory: Clear; No Wheezes, Rales or Rhonchi
Cardiac: S1/S2 and Regular Rhythm; No Murmur, Rub, Gallop or Peripheral Edema
Breast: Deferred by me
GI: Soft, Non Tender, Non Distended, Normal Bowel Sounds and No Hepatosplenomegaly
Rectal: Deferred by Provider
Genito-urinary: Deferred by me
Musculoskeletal: No Clubbing, No Cyanosis and No Edema
Skin: Warm and Dry; No Rash
Neuro: AO x 3, No Motor Deficits, Nonfocal/grossly intact, Cranial Nerves Intact, No Sensory Deficits and DTR's Intact & Symmetrical; No Slurred Speech, Facial Droop or Tremors
Psych: Calm
Laboratory Results
-
12/26/23 17:14
12/26/23 17:14
Laboratory Results
PT 13.9 Sec (11.4-14.6) 12/26/23 17:14
INR 1.09 12/26/23 17:14
APTT 28.1 Sec (23.4-35.0) 12/26/23 17:14
Total Bilirubin 0.4 mg/dl (0.2-1.3) 12/26/23 17:14
AST 71 U/L (17-59) H 12/26/23 17:14
ALT 71 U/L (0-50) H 12/26/23 17:14
Alkaline Phosphatase 32 U/L (38-126) L 12/26/23 17:14
Troponin I < 0.012 ng/ml 12/26/23 17:14
Impression/Plan
-
Impression/plan:
Observation telemetry
#Dizziness with ataxia/expressive aphasia concern for CVA/TIA versus alcohol intoxication/amnesia event
-Neurochecks every 4 hours
-Orthostatic vitals
-Consult neurology
-MRI/MRA brain
-Aspirin 81 mg daily
-Check hemoglobin A1c, lipid profile
-PT/OT/case management consult
CT head: No acute intracranial abnormality
#Acute alcohol intoxication concern for alcohol amnesia and
Alcohol level 209, no memory recall from 7 PM yesterday 12/25/2023
-MSAs screen protocol
-IV thiamine, IV folate
-Check B12 level
#Marijuana use
#HTN�benign
BP 147/98
Check orthostatic vitals(while sitting up then returning to lying position blood pressure was the same 147/98 on my exam)
Continue olmesartan 40 mg daily
#Transaminitis likely secondary to alcohol abuse
Follow CMP
#Seasonal allergies
Continue Singulair
History of left Achilles tendon with rupture repair
Takes Lyrica for pain
#History herpes
Takes as needed valacyclovir 1000 mg daily
#Obesity due to excess calorie consumption
-Patient currently on phentermine 37.5 mg daily
#Acne
Patient no longer taking doxycycline hyclate
DVT prophylaxis
SCDs
Full code
--- NOTE | 2023-12-26 21:02 | W.PN.UPDATE ---
Update Note
Progress Note Update
This is an addendum to the H&P written by FRANC Justice on 12/26/2023.
Patient seen and examined independently with COUNSELING PROGRAM LEADER. 53-year-old male past medical history of alcohol use disorder presenting for difficulty expressing words, right foot drop and dizziness with walking/standing since yesterday which he noticed in the
afternoon. Patient drinks 750 mL of wine daily plus wine sampling of 50 [place] flor on Tuesday. Patient also uses marijuana.
Patient states that he had identical symptoms this past August and claims that he was hospitalized here and had neurological workup for this which was unremarkable. Looking at the records however he was not admitted for this and was instead
admitted in October of this year for diverticulitis with abscess.
Alcohol level of 209. Mild transaminitis on labs. Orthostatic vitals negative. Patient denies any symptoms of withdrawal currently although high risk of alcohol withdrawal.
Patient continues to have some dysarthria. History concerning for potential CVA vs alcohol intoxication. Aspirin given. Check MRI brain/MRA head and neck. Dizziness with ambulation seems to be orthostatic secondary to significant alcohol use
although orthostatics are negative. Counseled patient on alcohol cessation. Thiamine and folate, alcohol withdrawal protocol. Check UDS, B12 level.
[2023-12-26 21:37] LABS: Amphetamines Positive (Negative); Barbiturates Negative (Negative); Benzodiazepines Negative (Negative); Buprenorphine Negative (Negative); Cocaine Negative (Negative); Marijuana Positive (Negative); Methadone Negative (Negative); Methamphetamines Negative (Negative); Opiates Negative (Negative); Phencyclidine Negative (Negative); Tricyclic Antidepressants Negative (Negative)
[2023-12-26 21:57] LABS: Fentanyl, Urine Negative (Negative)
[2023-12-27] VITALS (20 sets, daily range): BP systolic 126–166; BP diastolic 77–108; PULSE 74–103; O2SAT 96–97; BMI 29.4
[2023-12-27] MEDS: THIAMINE INJECTION 200 MG IV ×3 (00:04→15:08)
[2023-12-27] MEDS: SINGULAIR 10 MG PO ×2 (00:05→21:19)
[2023-12-27 00:36] LABS: APTT 28.4 Sec (23.4-35.0)
[2023-12-27 00:43] LABS: GGTP 36 U/L (15-73); Magnesium 1.8 mg/dl (1.6-2.3); Phosphorus 3.8 mg/dl (2.5-4.5)
[2023-12-27 00:49] LABS: B-Hydroxybutyrate 0.91 mmol/L (0.02-0.27)
[2023-12-27 05:39] LABS: Urine Albumin Negative (Neg - Trace); Urine Bilirubin Negative (Negative); Urine Character Clear (Clear); Urine Color Yellow; Urine Glucose Negative (Negative); Urine Ketone 2+ (Negative); Urine Leukocyte Trace (Negative); Urine Nitrite Negative (Negative); Urine Occult Blood Negative (Negative); Urine Specific Gravity 1.025 (<1.030); Urine Urobilinogen Negative (Neg - 1+)
[2023-12-27 06:20] LABS: Urine Bacteria Few (Negative); Urine Red Blood Cell 0-2 /HPF (0-2)
[2023-12-27 06:24] LABS: % Basophils 1.1 % (0-2); % Eosinophils 1.5 % (0-6); % Immature Granulocytes 0.2 % (0-0.5); % Lymphocytes 21.1 % (20.5-51.1); % Monocytes 8.8 % (1.7-9.3); % Neutrophils 67.3 % (42.2-75.2); Absolute Basophils 0.1 10^3/uL (0-0.2); Absolute Eosinophils 0.1 10^3/uL (0-0.7); Absolute Lymphocytes 1.4 10^3/uL (1.2-3.4); Absolute Monocytes 0.6 10^3/uL (0.1-0.6); Absolute Neutrophils 4.4 10^3/uL (1.4-6.5); Hematocrit 41.6 % (39.0-52.0); Hemoglobin 14.8 g/dL (13.0-18.0); Mean Corp Hgb Conc. 35.6 g/dL (33.0-37.0); Mean Corpuscular Hgb 32.5 pg (27.0-31.0); Mean Corpuscular Volume 91.2 fL (80.0-94.0); Nucleated Red Blood Cells % 0 % (-); Platelet Count 210 10^3/uL (130-400); Red Blood Cell Count 4.56 10^6/uL (4.70-6.10); Red Cell Dist. Width 14.8 % (11.5-14.5); White Blood Cell Count 6.5 10^3/uL (4.8-10.8)
[2023-12-27 07:03] LABS: ALT (SGPT) 64 U/L (0-50); AST (SGOT) 71 U/L (17-59); Albumin 4.4 g/dl (3.5-5.0); Alkaline Phosphatase 32 U/L (38-126); Blood Urea Nitrogen 8 mg/dl (9-20); Calcium 9.4 mg/dl (8.4-10.2); Carbon Dioxide 25 mmol/L (22-30); Chloride 98 mmol/L (98-107); Estimated Creatinine Clearance 88 ml/min; Glucose 66 mg/dl (70-99); HDL Cholesterol 90 mg/dl; LDL Cholesterol, Calculated 70 mg/dl; Potassium 4.2 mmol/L (3.5-5.1); Sodium 133 mmol/L (135-145); Total Cholesterol 174 mg/dl (50-199); Total Protein 6.8 g/dl (6.3-8.2); Triglyceride 70 mg/dl (10-149); Very Low Density Lipoprotein 14 mg/dl (0-30); eGFR > 60.00
--- NOTE | 2023-12-27 07:32 | CON.NEURO4 ---
Consultation - Neurology 4
-
CONSULTING PHYSICIAN: Yanci George
REFERRING PHYSICIAN: Hospitalist
DICTATED BY: Yanci George
DATE/TIME OF REQUEST: 12/27/23
DATE/TIME OF CONSULTATION: 12/27/23
Reason for Consultation: Speech difficulty, right leg abnormality
History of Present Illness:
Patient is a 53-year-old right-handed man with a past medical history of hypertension, fatty liver, obesity, significant alcohol use who presents to the hospital with symptoms of right leg weakness and walking abnormality, speech difficulty, and
difficulty focusing since 12/24.
He was speaking on the phone with his son who lives in [place] and it did not seem like his language was quite normal having some pauses and not entirely making sense. Has had some headaches recently that are not quite normal for him.
No double vision or dysarthria or vision loss. Has been taking phentermine for weight loss for the past couple of months.
Also reports a history of latent TB for which she is not being treated with any specific antibiotics.
Patient reports he had a very similar episode that happened in August lasting around 3 days and then spontaneously resolved without any intervention. He did have evaluation by his primary care doctor as an outpatient physicians, was felt that
this possibly could be due to long COVID. Patient reports having had COVID a total of around 5 times with hospitalizations for this twice.
Patient is on Phentermine at home. UDS positive for marijuana, amphetamines, alcohol level 209.
Past Medical History: Heavy alcohol use, hypertension, fatty liver disease, obesity
Surgical History: Drainage of sigmoid diverticulitis, vasectomy, left Achilles tendon repair, bilateral hip reconstruction, appendectomy, tonsillectomy
Family History: Reviewed and non-contributory
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
Review of Symptoms:
Patient denies any fever, headache, chest pain, shortness of breath, GI or symptoms.
Physical Exam:
Middle aged man, no acute distress, no head trauma, obese, oropharnyx and eyes clear, neck with no masses or meningismus, heart rate regular, abdomen obese, soft and non-tender, no lower extremity edema or rashes seen
Neurologic Examination:
The patient is awake, alert and oriented x 3. He is able to follow commands and answer questions appropriately. Very subtle pauses in speech occasionally but naming repetition and comprehension of complex commands crossing the midline and multistep
commands is good. On cranial nerve assessment, pupils are 3 mm bilateral, round and reactive to light and accommodation. Fundoscopy normal. Visual abbasi are full. Extraocular movements are intact. Facial sensations are intact and bilaterally
symmetrical, there is no facial asymmetry. Hearing is intact bilaterally to normal conversation volume. Tongue palate and uvula are midline. Sternocleidomastoid strengths are full bilaterally. Muscle tone and bulk are normal no abnormal movements
fasciculations or tremor. Shoulder abduction arm flexion wrist extension hip flexion hip abduction/adduction knee extension ankle dorsiflexion and plantarflexion are 5/5 bilaterally. There is no drift or involuntary movement noted. Deep tendon
reflexes are 2+ bilateral upper and lower extremities and Babinski is absent bilaterally. Sensations of pain, touch, temperature and vibration are intact and bilaterally symmetrical. There was no extinction noted on double simultaneous stimulation.
Coordination is intact by finger to nose bilaterally.
Neuro Imaging: CT head non contrast unremarkable, no abnormalities seen
Impressions
1. Symptoms of difficulties focusing, speech abnormality, right leg difficulty with walking. Neurologic examination is remarkable only for some asymmetry and dragging of the right leg with walking. Strength testing to confrontation is intact.
Perhaps a very subtle disfluency to speech. Symptoms would appear to localize either to the brain or the lumbar spine.
2. Heavy alcohol use. I do have concern that this has the potential to produce neurologic symptoms
3. Reports history of Latent TB
4. Phentermine use for weight loss
5. Marijuana use and Pregabalin for chronic pain
Recommendations:
1. IV thiamine and folate
2. Monitor for alcohol withdrawal
3. MRI brain and MRA head and neck
4. Goal normotension
5. Cardiac telemetry
6. Counseled cutting back the alcohol ideally complete cessation
7. Aspirin 81 mg daily
8. Check vitamin B12
9. Repeat orthostatic vital signs
10. PT/OT evaluations
Discussed patient care with: Patient and Dr Martinez
Home Medications
-
Home Medications
cholecalciferol (vitamin D3) 125 mcg (5,000 unit) tablet 125 mcg PO DAILY PRN supplement 10/25/23
clindamycin 1.2 % (1 % base)-benzoyl peroxide 5 % topical gel 1 applic topical DAILYPRN PRN apply to face for acne flares 10/25/23
metronidazole 0.75 % topical cream 1 applic topical HSPRN PRN apply to face for acne flares 10/25/23
olmesartan 40 mg tablet 40 mg PO DAILY Blood Pressure 10/25/23
sucralfate 1 gram tablet 1 g PO QIDPRN PRN stomach discomfort 10/25/23
therapeutic multivitamin 1 tab PO DAILY PRN supplement 10/25/23
vitamin E 1 tab PO DAILYPRN PRN supplement 10/25/23
doxycycline hyclate 50 mg capsule 50 mg PO BID 12/26/23
montelukast 10 mg tablet 10 mg PO HS 12/26/23
phentermine 37.5 mg tablet 37.5 mg PO DAILY 12/26/23
pregabalin 75 mg capsule 75 mg PO BID 12/26/23
valacyclovir 1 gram tablet 1,000 mg PO DAILY PRN herpes flare 12/26/23
Allergies
-
Allergies
Allergy/AdvReac Type Severity Reaction Status Date / Time
clarithromycin [From Biaxin] Allergy Rash Verified 12/26/23 17:03
Sulfa (Sulfonamide Allergy Rash Verified 12/26/23 17:03
Antibiotics)
Vital Signs / Labs
-
Vital Signs and Labs:
Temp Pulse Resp BP Pulse Ox
98.5 F 76 17 135/84 94
12/26/23 17:15 12/27/23 07:30 12/27/23 07:30 12/27/23 06:00 12/27/23 05:15
12/27/23 05:23
12/27/23 05:23
12/26/23 12/26/23 12/27/23
17:14 21:21 00:14
RBC 4.66 L
MCH 32.8 H
RDW 15.1 H
Sodium
Carbon Dioxide 31 H
BUN 7 L
Glucose
AST 71 H
ALT 71 H
Alkaline Phosphatase 32 L
Urine Ketones
Ur Leukocyte Esterase
Urine Bacteria
Ur Amphetamines Screen Positive H
U Marijuana (THC) Screen Positive H
B-Hydroxybutyrate 0.91 H
12/27/23 12/27/23
05:23 05:30
RBC 4.56 L
MCH 32.5 H
RDW 14.8 H
Sodium 133 L
Carbon Dioxide
BUN 8 L
Glucose 66 L
AST 71 H
ALT 64 H
Alkaline Phosphatase 32 L
Urine Ketones 2+ A
Ur Leukocyte Esterase Trace A
Urine Bacteria Few A
Ur Amphetamines Screen
U Marijuana (THC) Screen
B-Hydroxybutyrate
[2023-12-27 07:38] LABS: Vitamin B12 365 pg/ml (239-931)
[2023-12-27 08:32] LABS: Glycohemoglobin (HgbA1c) 4.7 % (4.0-5.6)
[2023-12-27] MEDS: LOW STRENGTH ASPIRIN 81 MG PO (08:53)
[2023-12-27] MEDS: BENICAR 40 MG PO (08:53)
[2023-12-27] MEDS: FOLVITE 1 MG PO (08:53)
[2023-12-27] MEDS: LYRICA PO (08:55)
--- NOTE | 2023-12-27 12:24 | W.PN.HOSP.TC ---
Today's Communication/Plan
-
Follow on telemetry. Check MRI of the brain and lumbar spine.
Watch for alcohol withdrawals.
Assessment / Plan
Assessment / Plan
#Dizziness with speech disturbance and right foot/leg weakness - concern for CVA/TIA versus alcohol intoxication/amnesia event
-Neurochecks every 4 hours
-Orthostatic vitals
-appt neurology input
-MRI/MRA brain pending
-Aspirin 81 mg daily
- hemoglobin A1c 4.7, ldl 70
-PT/OT/case management consult
CT head: No acute intracranial abnormality
#Acute alcohol intoxication
Alcohol level 209, no memory recall from 7 PM yesterday 12/25/2023
-MSAs screen protocol
-IV thiamine, IV folate
-Follow on KHADRA protocol
#Marijuana use -says medical not recreational use
#HTN�benign
Continue olmesartan 40 mg daily
#Transaminitis likely secondary to alcohol abuse
Follow CMP
#Seasonal allergies
Continue Singulair
History of left Achilles tendon with rupture repair
Takes Lyrica for pain
#History herpes
Takes as needed valacyclovir 1000 mg daily
#Obesity due to excess calorie consumption
-Patient currently on phentermine 37.5 mg daily. It can give false positive amphetamine UDS. Patient denies taking oral amphetamines
#Acne
Patient no longer taking doxycycline hyclate
DVT prophylaxis
SCDs
Full code
Anticipated Discharge: 24 - 48 hours
Subjective/Interval History
-
Date of Service: December 27, 2023
Feeling right foot more stronger than initial presentation. Also speech is better today -less slurred . No problems recognizing words or using words.
This can sometimes happen to him-speech disturbance and right-sided weakness in August which resolved in 3 days. Denies prior history of strokes or TIAs. Didnt have prior MRI brain.
Denies alcohol withdrawal issues in past or having had a seizure.
Drinks alcohol 4 to 5 days a week.
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 When he drinks at home between him and the girlfriend they can have couple bottles of wine.
Objective Data
-
Labs:
Laboratory Results
12/27/23 12/27/23
00:14 05:23
WBC 6.5
Hgb 14.8
Hct 41.6
Plt Count 210
PT 14.0
INR 1.10
APTT 28.4
Sodium 133 L
Potassium 4.2
Chloride 98
Carbon Dioxide 25
BUN 8 L
Creatinine 1.0
Glucose 66 L
Calcium 9.4
Total Bilirubin 1.0
AST 71 H
ALT 64 H
Alkaline Phosphatase 32 L
Vital Signs:
Vital Signs
Temp Pulse Resp BP Pulse Ox
98.5 F 95 17 144/104 96
12/26/23 17:15 12/27/23 11:45 12/27/23 11:45 12/27/23 10:24 12/27/23 11:45
I&O
12/26/23 12/27/23 12/28/23
06:59 06:59 06:59
Output Total 600 / 600
Balance -600 / -600
Review of Systems
-
Constitutional: Denies Fever
Respiratory: Denies Trouble Breathing
Cardiac: Denies Chest Pain
Abdomen/GI: Denies Nausea or Vomiting
Neuro: Denies Dizzy or Headache
Physical Exam
-
General: No Apparent Distress
HEENT: Moist Mucous Membranes
Respiratory: Clear to Auscultation
Cardiac: Regular Rhythm and S1/S2
GI: Soft, Nontender, Nondistended and Normal Bowel Sounds
Musculoskeletal: No Edema
Neuro: AO x 3 and No Motor Deficits; Negative Tremors, Slurred Speech or Facial Droop
Psych: Calm; Negative Confused or Agitated
Data Reviewed
-
Labs: Labs Reviewed by me
[2023-12-27] MEDS: LYRICA 75 MG PO (21:19)
[2023-12-28] MEDS: THIAMINE INJECTION 200 MG IV ×2 (00:33→09:01)
[2023-12-28 06:13] VITALS: BP 155/87
[2023-12-28 07:00] VITALS: BP 146/95
--- NOTE | 2023-12-28 08:15 | W.PN.NEURO.1 ---
Today's Communication / Plan
-
-Reiterated my recommendation to at least cut down alcohol ideally stop altogether, would benefit from p.o. thiamine and multivitamin for home regimen
-No further neurologic imaging
-Physical therapy occupational therapy evaluations
No further recommendations at this time we will sign off
Neuro Assessment/Plan
Assessment
Impressions
1. Symptoms of difficulties focusing, speech abnormality, right leg difficulty with walking. Neurologic examination is remarkable only for some asymmetry and dragging of the right leg with walking. Strength testing to confrontation is intact.
Perhaps a very subtle disfluency to speech.
2. Heavy alcohol use. I do have concern that this has the potential to produce neurologic symptoms
3. Reports history of Latent TB
4. Phentermine use for weight loss
5. Marijuana use and Pregabalin for chronic pain
MRI brain and lumbar spine with and without contrast along with MRA of the head and neck are all normal
Patient describes having had similar event in August lasting around 72 hours total
Symptom duration is far too long to be TIA and his brain MRI along with MRA of the head and neck and not supportive of cerebrovascular disease and are negative for acute or chronic stroke. Not consistent with seizure. No evidence on exam of
peripheral neuropathy or myelopathy. Functional neurologic disorder is possible but patient not showing overt functional neurologic signs on exam.
Reviewing medications it does not appear that any of his existing home medications would contribute strongly to this type of presentation
Suspicion for some degree of the symptoms being related to frequent heavy alcohol use.
Patient reports testing for heavy metals by his primary care doctor which showed no significant toxicity
Ultimately unclear cause of symptoms and negative workup. Anticipate things will improve with time.
Subjective/Objective
Subjective Data
Date of Service: December 28, 2023
No acute events, feels speech has normalized at this point, feels walking still a little off
Objective Data
Vital Signs
Temp Pulse Resp BP Pulse Ox
98.4 F 87 18 137/95 97
12/27/23 23:40 04/23/24 23:40 12/27/23 23:40 12/27/23 23:40 12/27/23 23:40
Lab Results
12/27/23 05:23
12/27/23 05:23
PT 14.0 Sec (11.4-14.6) 12/27/23 00:14
INR 1.10 12/27/23 00:14
APTT 28.4 Sec (23.4-35.0) 12/27/23 00:14
Sodium 133 mmol/L (135-145) L 12/27/23 05:23
Potassium 4.2 mmol/L (3.5-5.1) 12/27/23 05:23
BUN 8 mg/dl (9-20) L 12/27/23 05:23
Glucose 66 mg/dl (70-99) L 12/27/23 05:23
Calcium 9.4 mg/dl (8.4-10.2) 12/27/23 05:23
Phosphorus 3.8 mg/dl (2.5-4.5) 12/27/23 00:14
LDL Cholesterol, Calc 70 mg/dl 12/27/23 05:23
Vitamin B12 365 pg/ml (239-931) 12/27/23 05:23
Ur Buprenorphine Negative (Negative) 12/26/23 21:21
Patient Allergies
clarithromycin [From Biaxin] Allergy (Verified 12/26/23 17:03)
Rash
Sulfa (Sulfonamide Antibiotics) Allergy (Verified 12/26/23 17:03)
Rash
Review of Systems
-
History Source: Patient
All other systems: Reviewed and negative
Constitutional: No Symptoms
EENT: No Symptoms Reported
Respiratory: No Symptoms
Cardiac: No Symptoms
Abdomen/GI: No Symptoms
Genitourinary: No Symptoms
Musculoskeletal: No Symptoms
Skin: No Symptoms
Neuro: Dizzy, Speech Problem and See existing Neuro Note
Endocrine: No Symptoms
Hematologic / Lymphatic: No Symptoms
Allergy / Immunology: No Symptoms
Physical Exam
-
General: Comfortable
Eyes: No Ptosis
HEENT: Normocephalic
Neck: No Bruits Bilaterally
Respiratory: Clear to Auscultation
Cardiac: Regular Rhythm
GI: Normal Bowel Sounds
Skin: Unremarkable
Extremities: No Clubbing
Psych: Unremarkable
Extended Neurological Exam
Mood & Affect: Mood Unremarkable and Affect Unremarkable
Attention Span & Concentration: Awake, Alert and Interactive
Memory: Unremarkable
Tremor: Hand Tremor Absent
Involuntary Movement: None
Speech: Quality Unremarkable and Quantity Unremarkable; Negative Expressive Aphasia, Receptive Aphasia or Dysarthric
Cranial Nerve II: Left Eye: Pupillary Reactivity Unremarkable and Pupillary Size Unremarkable
Cranial Nerve II: Right Eye: Pupillary Reactivity Unremarkable and Pupillary Size Unremarkable
Cranial Nerves III, IV, : Extraocular Movement: Extraocular Movement Full in all Directions
Cranial Nerve VII: Facial Symmetry: Normal Facial Symmetry
Muscle Strength, Overall: Other (No pronator drift, power 5/5 shoulder abduction and hip flexion bilaterally)
Muscle Bulk & Tone: Bulk Unremarkable and Tone Unremarkable
Pronator Drift: No Drift in Upper Extremities
Deep Tendon Reflexes: Other (2+ biceps triceps patella and achilles)
Touch Sensation: Unremarkable
Data Reviewed
-
CT Head: Report Reviewed and Image Reviewed
MRI Head: Report Reviewed and Image Reviewed
MRI Lumbar Spine: Report Reviewed and Image Reviewed
Labs: Report Reviewed
[2023-12-28] MEDS: FOLVITE 1 MG PO (09:02)
[2023-12-28] MEDS: LOW STRENGTH ASPIRIN 81 MG PO (09:02)
[2023-12-28] MEDS: BENICAR 40 MG PO (09:02)
[2023-12-28] MEDS: LYRICA 75 MG PO (09:02)
--- NOTE | 2023-12-28 09:04 | W.PN.HOSP.TC ---
Today's Communication/Plan
-
Discharge planning today
Assessment / Plan
Assessment / Plan
Physical exam:
General: Well Developed, Well Nourished and No Apparent Distress
HEENT: Normocephalic, Atraumatic and Moist Mucous Membranes
Respiratory: Clear to Auscultation; Negative Wheezes, Rales or Rhonchi
Cardiac: Regular Rhythm and S1/S2
GI: Soft, Nontender and Nondistended
Musculoskeletal: No Clubbing, No Cyanosis and No Edema
Neuro: Awake, Alert and Oriented
Psych: Calm
A/P:
# Alcohol use disorder
-Repeated labs today and unremarkable
-He does relate to me his chronic intermittent symptoms and frustration of trying to find out a unifying diagnosis. We discussed about alcohol playing a significant role although I agree that it might not be the driving because and he does
acknowledge, on the other hand he has been on business in which she does drink alcohol as well. He mentioned to be most of his latest issues happen after he moved from [place] to his house in [place]. 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
in [employer]
-No evidence of alcohol withdrawal at this moment. I recommended several places outpatient and discussed with PCP again for further reevaluation.
-Thiamine and folic acid--> we will continue multivitamin and thiamine as outpatient
-Neurology cleared him for discharge
-He did well with PT OT
# Ruled out stroke and spinal involvement
-MRI of the brain unremarkable, MRA of the head and neck unremarkable.
-Stop aspirin and neuro checks
#Acute alcohol intoxication
Alcohol level 209, no memory recall from 7 PM yesterday 12/25/2023
-MSAs screen protocol
-IV thiamine, IV folate
-Follow on KHADRA protocol
#Marijuana use -says medical not recreational use
#HTN�benign
Continue olmesartan 40 mg daily
#Transaminitis likely secondary to alcohol use disorder
Follow CMP
#Seasonal allergies
Continue Singulair
History of left Achilles tendon with rupture repair
Takes Lyrica for pain
#History herpes
Takes as needed valacyclovir 1000 mg daily
#Obesity due to excess calorie consumption
-Patient currently on phentermine 37.5 mg daily. It can give false positive amphetamine UDS. Patient denies taking oral amphetamines
#Acne
Patient no longer taking doxycycline hyclate
DVT prophylaxis
SCDs
Full code
Anticipated Discharge: Today
Subjective/Interval History
-
Date of Service: December 28, 2023
Patient feels back to his baseline at this point. No tremors, no nausea or vomiting.
Objective Data
-
Vital Signs:
Vital Signs
Temp Pulse Resp BP Pulse Ox
97.6 F 85 18 146/95 97
12/28/23 07:00 12/28/23 07:00 12/28/23 07:00 12/28/23 07:00 12/28/23 07:00
I&O
12/27/23 12/28/23 12/29/23
06:59 06:59 06:59
Intake Total 780 / 780
Output Total 600 / 600
Balance -600 / -600 780 / 780
[2023-12-28 10:36] LABS: ALT (SGPT) 61 U/L (0-50); AST (SGOT) 54 U/L (17-59); Albumin 4.4 g/dl (3.5-5.0); Alkaline Phosphatase 31 U/L (38-126); Blood Urea Nitrogen 11 mg/dl (9-20); Calcium 9.9 mg/dl (8.4-10.2); Carbon Dioxide 34 mmol/L (22-30); Chloride 96 mmol/L (98-107); Estimated Creatinine Clearance 88 ml/min; Glucose 100 mg/dl (70-99); Potassium 4.8 mmol/L (3.5-5.1); Sodium 133 mmol/L (135-145); Total Bilirubin 0.9 mg/dl (0.2-1.3); Total Protein 7.1 g/dl (6.3-8.2); eGFR > 60.00
[2023-12-28 11:00] VITALS: BP 136/87
[2023-12-28 11:25] VITALS: BP 136/87; PULSE 87; O2SAT 98
[2023-12-28 12:48] VITALS: BP 142/99; PULSE 78; O2SAT 97
--- NOTE | 2023-12-28 12:51 | PTOTSP ---
pt currently demonstrates ability to complete simple ADLs, functional transfers, ambulation with no assistance. pt reports he feels close to baseline. no further acute OT needs identified, will sign off.
--- NOTE | 2023-12-28 13:24 | W.DCSUMMARY ---
Discharge Summary
Discharge Data
Date of Admission: 12/26/23
Date of Discharge: 12/28/23
-
Pending Results: No
Hospital Course
Patient 53 years old male with history of hypertension, fatty liver disease, obesity, alcohol use disorder came to the hospital with generalized weakness but more pronounced on the right, ataxia, speech difficulties, and confusion and found to have
increased levels of alcohol. He was placed on MSA protocol and given IV thiamine and folate. His B12 was checked and it was normal at 365. Patient also had multiple confounding factors including chronic intermittent symptoms for several months
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 He had
been told he has long COVID symptoms/syndrome, he uses phentermine at home, UDS positive for marijuana, amphetamines, and alcohol level 209 upon admission. Neurology consulted. He had MRI of the brain and MRA of the head and neck and all those
test were unremarkable for acute findings. He participated in PT and OT. He has been doing well and close to his baseline today. Outpatient PT has been arranged. Neurology cleared him for discharge. He will be discharged in stable condition
today.
Discharge duration: 35 minutes
Discharge Plan
-
Patient Disposition: Home (Routine Discharge)
Discharge Diagnosis/Procedures: Alcohol use disorder. Ruled out stroke.
Diet: Low Cholesterol
Activity: As tolerated
Driving Restrictions: As prior to admission
Blood Work: Please PCP to order CBC, CMP, magnesium within 1 week.
Referrals:
Orlin Mondragon MD [Family Provider] - in less than 1 week
Prescriptions:
New
thiamine HCl (vitamin B1) 100 mg Tablet
100 mg PO BID 14 Days Qty: 28 0RF
Continued
sucralfate 1 gram Tablet
1 g PO QIDPRN PRN (Reason: stomach discomfort)
therapeutic multivitamin Tablet
1 tab PO DAILY PRN (Reason: supplement)
metronidazole 0.75 % Cream
1 applic TOPICAL HSPRN PRN (Reason: apply to face for acne flares)
olmesartan 40 mg Tablet
40 mg PO DAILY
clindamycin-benzoyl peroxide 1.2 %(1 % base) -5 % Gel
1 applic TOPICAL DAILYPRN PRN (Reason: apply to face for acne flares)
cholecalciferol (vitamin D3) 125 mcg (5,000 unit) Tablet
125 mcg PO DAILY PRN (Reason: supplement)
vitamin E
1 tab PO DAILYPRN PRN (Reason: supplement)
valacyclovir 1 gram tablet
1,000 mg PO DAILY PRN (Reason: herpes flare)
doxycycline hyclate 50 mg capsule
50 mg PO BID
phentermine 37.5 mg tablet
37.5 mg PO DAILY
montelukast 10 mg tablet
10 mg PO HS
pregabalin 75 mg capsule
75 mg PO BID
Patient Comments:
12/26/2023: last filled 12/19/23, 60 tabs for 30 days from [id number]
Discharge Orders:
Discharge Patient (As Directed); Ordered 12/28/23
Ordered By: Jean Galindo
Discharge Date and Time
Discharge Date/Time: 12/28/23 15:29
Print Language: MACANESE
--- NOTE | 2023-12-28 13:52 | CM ---
Met with pt at bedside
Lives with his girlfriend in a 2 story home
Independent, works FT
DME - crutches and cane - currently not using
SNF - denies past hx. Has had Outpatient PT in past
HH - Has had [facility] in past
Has ride home at d/c
PCP - Dr Orlin Mondragon
CM consulted for
- d/c planning - pt has support at home. PT recommending out patient PT
- Substance abuse - pt works in the [employer]. Offered [facility] - for outpatient/inpatient needs
Pt declined - does not feel he has a need at this time. Encouraged to f/u with PCP
Plan - home with outpatient PT
== END 2023-12-28 15:29 | disposition home or self-care (01) ==
LOC: 3 WEST ACU 21:29
PROVIDERS: Clinical Nurse Specialist Family Health; ADMITTING PHYSICIAN Hospitalist; ATTENDING PHYSICIAN Hospitalist; CONSULT PHYSICIAN Student in an Organized Health Care Education/Training Program; EMERGENCY PHYSICIAN Emergency Medicine; FAMILY PHYSICIAN Family Medicine
DX: F10.129 Alcohol abuse with intoxication, unspecified (principal); R47.01 Aphasia; R29.898 Other symptoms and signs involving the musculoskeletal system; R29.818 Other symptoms and signs involving the nervous system; R53.1 Weakness; R47.81 Slurred speech; R42 Dizziness and giddiness; K76.0 Fatty (change of) liver, not elsewhere classified; I10 Essential (primary) hypertension; E66.09 Other obesity due to excess calories; F12.90 Cannabis use, unspecified, uncomplicated; G89.29 Other chronic pain; Y90.7 Blood alcohol level of 200-239 mg/100 ml; R74.01 Elevation of levels of liver transaminase levels; Z68.29 Body mass index [BMI] 29.0-29.9, adult; Z88.2 Allergy status to sulfonamides; Z88.1 Allergy status to other antibiotic agents; Z79.82 Long term (current) use of aspirin; J30.2 Other seasonal allergic rhinitis; Z86.15 Personal history of latent tuberculosis infection
CPT/HCPCS: 70450; 70544; 70548; 70553; 72158; 80053; 80061; 80306; 80307; 81003; 81015; 82010; 82077; 82607; 82962; 82977; 83036; 83735; 84100; 84484; 85025; 85610; 85730; 87070; 93005; 97116; 97535; 99285; A9585; G0378